=== PATIENT | female | born 1950 | race Caucasian/White ===

== ENCOUNTER 2018-10-02 16:29 | Inpatient (IN) | payer OTHER, MEDICARE ==
[~2018-10-02] VITALS: Ht 172.7 cm; Wt 181.4 kg
--- NOTE | ~2018-10-02 | CON ---
[address] [address] CONSULTATION Name: PABLITO CHAVARRIA Room: [address] IN .R.#: [id number] Admission: 10/02/18 Attend Phys: Jaspreet Bender MD Discharge: Date of : 48 Report #: [id number] THIS REPORT FOR: //name// CC: FAM physician/PCP Jaspreet Bender DATE OF SERVICE: 10/03/2018 REQUESTING PHYSICIAN: Jaspreet Bender MD REASON FOR CONSULTATION: Advanced kidney disease. HISTORY OF PRESENT ILLNESS: The patient is a 68-year-old white female with medical history significant for diabetes mellitus type 2 diagnosed in 1992, history of hypertension, history of morbid obesity, history of chronic lymphedema. She was admitted to the hospital because she could not get up off the toilet seat, her son called fire department and they brought her to Emergency Room. Here in the Emergency Room, she was found to have bilateral leg cellulitis. She has a creatinine of 2.9. Her GFR is around 16. Her white blood count initially was 11,000 with 89% segs, 1% bands. She was started on vancomycin and the Rocephin. She received just one dose of vancomycin that was stopped. Now, she continues with Rocephin only. SOCIAL HISTORY: She does not smoke cigarettes, does not drink alcohol. Lives with her son, actually son lives with her in her house. 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 She states that her son takes her to work and she is using a scooter at work to move from one place to another. FAMILY HISTORY: Positive for diabetes, morbid obesity. REVIEW OF SYSTEMS: Positive for difficulties to move around, difficulties to perform any kind of activities due to her weight. She states her legs become red for last several weeks. She states that she has chronic edema since she had bilateral mastectomy in 2013. PAST MEDICAL HISTORY: 1. Morbid obesity. 2. Diabetes mellitus type 2. 3. Hypertension. 4. Chronic lymphedema. 5. History of breast cancer, status post bilateral mastectomy in 2013, followed by ____, who is a breast surgeon. She does not follow with any breast oncologist. PHYSICAL EXAMINATION: GENERAL: Awake, alert, [place] [address] CONSULTATION Name: PABLITO CHAVARRIA Room: [address]#: [id number] Admission: 10/02/18 Attend Phys: Jaspreet Bender MD Discharge: Date of : 48 Report #: [id number] VITAL SIGNS: Blood pressure 153/80, heart rate 90, afebrile. HEENT: Pupils are round. NECK: Fatty. CHEST: She had bilateral mastectomy. LUNGS: Decreased air movement. CARDIOVASCULAR: Regular rate. ABDOMEN: Very obese. EXTREMITIES: With significant bilateral edema and chronic skin changes due to edema and also some erythema and below her knees bilaterally. MEDICATIONS: Reviewed and besides the Rocephin that are mentioned earlier, she is also on Coreg, Arimidex and she receives still on vancomycin and she was on diltiazem at home and diltiazem was appropriately stopped. ASSESSMENT: 1. Chronic kidney disease stage 4, most likely due to diabetic nephropathy. 2. Hypertension. 3. Morbid obesity. 4. Chronic lymphedema, possible cellulitis. PLAN: I agree avoid calcium channel blockers because they can promote edema. To make sure her blood pressure is controlled, blood sugars controlled and I would defer treatment of cellulitis to primary team. I will also order some basic workup patient with chronic kidney disease 4. Unfortunately, she is heading towards dialysis within the next year or so. Thank you very much for asking my opinion on the patient. By: 1016 [id number] Serrano MD /nt
[~2018-10-02 16:29] MED LIST: ACTOS 30 MG TAB30 MG PO; CARVEDILOL12.5 MG PO; CRESTOR40 MG PO; GLYBURIDE 5 MG T5 MG PO; LISINOPRIL20 MG PO; MOBIC15 MG PO; TRIAMTERENE-HC1 EAC3 PO; ULTRAM 50MG TAB50 MG PO; VERAPAMIL ER240 MG PO
[2018-10-02 16:30] VITALS: BP 141/81
[2018-10-02] MEDS ORDERED: GLUCOPHAGE XR750 MG PO (16:33)
[2018-10-02] MEDS ORDERED: LASIX 20 MG TAB20 MG PO (16:34)
[2018-10-02] MEDS ORDERED: KLOR-CON 1010 MEQ PO (16:34)
[2018-10-02] MEDS ORDERED: OXYBUTYNIN 5 MG5 M2 PO (16:36)
[2018-10-02] MEDS ORDERED: ANASTROZOLE1 MG PO (16:36)
[2018-10-02] MEDS ORDERED: CYMBALTA60 MG PO (16:36)
[2018-10-02] MEDS ORDERED: CARDIZEM CD240 MG PO (16:37)
[2018-10-02] MEDS ORDERED: GLYXAMBI 10 MG1 EACH PO (16:37)
[2018-10-02 17:16] LABS: HEMOGLOBIN 11.2 gm/dL (12.0-15.0); MCHC 31.2 g/dL (28.0-37.0); MCV 86.6 fL (80.0-100.0); MPV 8.3 fl. (7.2-11.1); NUCLEATED RBCS 0 /100WBC; PLATELET COUNT* 199 thou/uL (150-400); RBC 4.16 mil/uL (4.20-5.00); RDW-CV 18.4 % (10.5-14.5); WBC 11.1 thou/uL (4.0-11.0)
[2018-10-02 17:25] LABS: APTT 26.7 Seconds (25.0-31.3); PROTIME 10.7 Seconds (9.20-11.50)
[2018-10-02 17:33] LABS: ABSOLUTE EOSINOPHILS 0.2 thou/uL (0.0-0.7); ABSOLUTE LYMPHOCYTES 0.4 thou/uL (0.8-5.3); ABSOLUTE MONOCYTES 0.4 thou/uL (0.0-1.2)
[2018-10-02 17:34] LABS: ANION GAP 9 mmol/L (7-16); BUN 60 mg/dL (7-18); CALCIUM 8.9 mg/dL (8.5-10.1); CHLORIDE 110 mmol/L (98-107); CO2 28 mmol/L (21-32); CREATININE 2.9 mg/dL (0.6-1.3); GLUCOSE 69 mg/dL (70-99); PLATELET ESTIMATE ADEQUATE; SODIUM 147 mmol/L (136-145); TROPONIN-I LEVEL <0.06 ng/mL (<0.06)
[2018-10-02 17:40] LABS: ALBUMIN 2.6 g/dL (3.4-5.0); ALKALINE PHOSPHATASE 95 U/L (46-116); NT-PRO BRAIN NAT PEPTIDE 3750 pg/mL (<300); SGOT 22 U/L (15-37); SGPT 29 U/L (30-65); TOTAL BILIRUBIN 0.4 mg/dL (<0.1-1.0); TOTAL PROTEIN 6.3 g/dL (6.4-8.2)
[2018-10-02 19:52] VITALS: BP 149/78
[2018-10-02 20:00] VITALS: BP 122/86
[2018-10-03 00:38] LABS: URINE BILIRUBIN NEGATIVE (Negative); URINE BLOOD 2+ (Negative); URINE CLARITY CLEAR; URINE COLOR YELLOW; URINE GLUCOSE-RANDOM 1+ (Negative); URINE KETONES NEGATIVE (Negative); URINE LEUKOCYTES-REFLEX NEGATIVE (Negative); URINE NITRITE-REFLEX NEGATIVE (Negative); URINE PROTEIN 3+ (Negative); URINE SPECIFIC GRAVITY >= 1.030 (1.005-1.030); URINE UROBILINOGEN 0.2 E.U./dl (0.2-1.0)
[2018-10-03 02:03] LABS: FINE GRANULAR CASTS 0-3 Few /LPF (None Seen); SQUAMOUS 0-3 Few /LPF (0-3)
[2018-10-03 02:04] LABS: HYALINE CASTS 0-3 Few /LPF (None Seen); URINE WBC-REFLEX 0-5 Rare /HPF (0-5)
[2018-10-03 02:05] LABS: CRYSTALS None Seen /LPF (None Seen)
[2018-10-03 05:07] LABS: ABSOLUTE EOSINOPHILS 0.2 thou/uL (0.0-0.7); ABSOLUTE LYMPHOCYTES 0.6 thou/uL (0.8-5.3); ABSOLUTE MONOCYTES 0.8 thou/uL (0.0-1.2); ABSOLUTE NEUTROPHILS 5.8 thou/uL (1.6-8.1); BASOPHILS 0.4 %; EOSINOPHILS 3.4 %; HEMOGLOBIN 9.9 gm/dL (12.0-15.0); LYMPHOCYTES 7.8 %; MCH 27.1 pg (26.0-34.0); MCHC 31.1 g/dL (28.0-37.0); MCV 87.3 fL (80.0-100.0); MONOCYTES 10.7 %; MPV 8.7 fl. (7.2-11.1); NUCLEATED RBCS 0 /100WBC; PLATELET COUNT* 164 thou/uL (150-400); POLYS 77.7 %; RBC 3.67 mil/uL (4.20-5.00); RDW-CV 19.1 % (10.5-14.5); WBC 7.4 thou/uL (4.0-11.0)
[2018-10-03 05:30] LABS: CALCIUM 8.3 mg/dL (8.5-10.1); CREATININE 2.8 mg/dL (0.6-1.3); PHOSPHORUS* 5.3 mg/dL (2.5-4.9); POTASSIUM 4.1 mmol/L (3.5-5.1)
[2018-10-03 08:20] VITALS: BP 153/80
--- NOTE | 2018-10-03 10:47 | EKG ---
[place] [address] ELECTROCARDIOGRAM REPORT Name: PABLITO CHAVARRIA Room: [address] ADM IN .R.#: [id number] Admission: 10/02/18 Attend Phys: Jaspreet Bender MD Discharge: Date of : 48 Report #: [id number] THIS REPORT FOR: //name// [facility] ED Test Date: 2018-10-02 Test Time: 17:16:37 Pat Name: PABLITO CHAVARRIA Department: Room: [facility] Gender: F Weight Count Operator: : 1950 Requested By: Huber Pineda Order Number: [id number] MD: Arthur Gipson Measurements Intervals [place] Rate: 96 P: [place]: QRS: -29 QRSD: 91 T: 90 QT: 360 QTc: 455 Interpretive Statements Atrial fibrillation Borderline left axis deviation Borderline low voltage, extremity leads Abnormal R-wave progression, late transition Nonspecific T abnormalities, lateral leads Compared to ECG 08/26/2010 00:22:20 Sinus rhythm no longer present Electronically Signed On 10-03-2018 10:47:39 CDT by Arthur Gipson [email or web address] <ELECTRONICALLY SIGNED> By: Arthur Gipson MD, FAC 10/03/18 1047 1716 1716 Arthur Gipson MD, [facility] /EPI
[2018-10-03 17:18] VITALS: BP 160/87
[2018-10-03 19:50] VITALS: BP 120/64
[2018-10-04 02:10] LABS: GLYCOHEMOGLOBIN (HGB A1C) 7.1 % (4.8-5.6)
[2018-10-04 04:58] LABS: HEMOGLOBIN 9.8 gm/dL (12.0-15.0); MCHC 30.6 g/dL (28.0-37.0); MCV 88.3 fL (80.0-100.0); MPV 8.9 fl. (7.2-11.1); RBC 3.62 mil/uL (4.20-5.00); RDW-CV 19.4 % (10.5-14.5); WBC 7.1 thou/uL (4.0-11.0)
[2018-10-04 05:07] LABS: % SATURATION 8 % (20-39); IRON 20 ug/dL (50-175)
[2018-10-04 05:21] LABS: ALBUMIN 2.2 g/dL (3.4-5.0); CALCIUM 7.8 mg/dL (8.5-10.1); CREATININE 2.9 mg/dL (0.6-1.3); POTASSIUM 4.5 mmol/L (3.5-5.1); TOTAL BILIRUBIN 0.3 mg/dL (<0.1-1.0); TOTAL PROTEIN 5.9 g/dL (6.4-8.2)
[2018-10-04 09:00] VITALS: BP 145/75
--- NOTE | 2018-10-04 11:48 | CON ---
[address] [address] CONSULTATION Name: PABLITO CHAVARRIA Room: [address] ADM IN M.R.#: [id number] Admission: 10/02/18 Attend Phys: Jaspreet Bender MD Discharge: Date of : 48 Report #: [id number] THIS REPORT FOR: //name// CC: FAM physician/PCP Jaspreet Bender DATE OF SERVICE: 10/03/2018 INFECTIOUS DISEASE CONSULTATION ATTENDING PHYSICIAN: Dr. Jaspreet Bender. REASON FOR EVALUATION: Bilateral lower extremity inflammatory eruptions with a likely component of cellulitis. HISTORY OF PRESENT ILLNESS: Chart reviewed, patient examined. This is a 68-year-old woman with extensive medical history, does have diabetes mellitus who apparently has chronic lymphedema as well. She is seen in speciality clinic who over the course of last few days has become weaker, had fallen, was unable to get even with the assistance of her son, did admit to some chills as well. Complains of some anorexia. She is not clear if she has had fever, does admit to ongoing issues with dyspnea. She states with minimal exertion, essentially walking in the house to the car she is quite winded, was evaluated in the Emergency Room and thought to have increasing inflammatory signs within the bilateral lower extremities. On specific questioning, it is not clear that she has significant pain. She states very weak and gave way. Initial white count was borderline elevated at 11.1. She was found to be in renal failure with a creatinine of 2.9. Chest x-ray was otherwise unremarkable. Urinalysis showed 3+ protein, 0-5 white cells. Blood cultures are pending. Empirically she was started on antimicrobial therapy including ceftriaxone, vancomycin, is perhaps mildly encephalopathic. ALLERGIES: None known. MEDICATIONS: Currently include enoxaparin, atorvastatin, duloxetine, anastrozole, oxybutynin, carvedilol, ceftriaxone, insulin, vancomycin, and analgesics. PAST MEDICAL HISTORY: Diabetes mellitus type 2, history of hypertension, high cholesterol, previous history of breast cancer with lumpectomy, radiation therapy, , tonsillectomy, cholecystectomy, abdominal hernia repair, arthritis, bilateral mastectomies 2013. SOCIAL HISTORY: Nonsmoker, no ethanol, no illicit drug use. FAMILY HISTORY: [place] [address] CONSULTATION Name: PABLITO CHAVARRIA Room: [address] IN [facility]#: [id number] Admission: 10/02/18 Attend Phys: Jaspreet Bender MD Discharge: Date of : 48 Report #: [id number] REVIEW OF SYSTEMS: A 10-point review of systems as otherwise unremarkable with the exception of the above history of present illness: PHYSICAL EXAMINATION: GENERAL: Slightly lethargic, she appears to be in moderate distress, primarily from respiratory standpoint, she is on supplemental oxygen per nasal cannula. She is morbidly obese. VITAL SIGNS: Temperature 97.6, pulse 90, respirations 20, blood pressure is 153/80. SKIN: Warm. HEENT: Normocephalic. Extraocular muscles intact. NECK: Supple. LUNGS: Diminished breath sounds. Few scattered crackles at the bases. HEART: Regular. I do not appreciate murmur. ABDOMEN: Obese, soft, nontender. EXTREMITIES: Bilateral lower extremities have changes consistent with likely combination of lymphedema as well as venous stasis insufficiency, some chronic dermatitis seems to be acute component on the right perhaps skin and soft tissue infection with cellulitis, not exquisitely tender. Does have lesion on her left pretibial site appears to be dark. She states it has been there for 2 years. GENITOURINARY: Deferred. RECTAL: Deferred. LABORATORY DATA: Blood cultures sterile thus far, prealbumin 16.3. TSH of 0.56. Followup CBC: White count of 7.4, H and H 9.9 and 32.0, platelets of 164. Differential showed lymphocytopenia of 600. Electrolytes: Sodium 145, potassium 4.1, chloride 111, bicarbonate is 27, anion gap of 6, BUN and creatinine 58 and 2.8. Urinalysis 0-5 white cells, 10-30 bacteria. Chest x-ray, no acute process. Liver functions otherwise unremarkable. Albumin of 2.6. Total protein 6.3. ASSESSMENT: Bilateral lower extremity inflammatory eruption, likely multifactorial, cannot exclude skin and soft tissue infection with cellulitis particularly on the right. We will continue empiric antimicrobial therapy adjusted for her renal dysfunction see how she does clinically. She does have history of utilizing compression will try to reintroduce that as well the next 1-2 days. Continue elevation. She appears to be quite tenuous in terms of overall excess body fluid, does have orthopnea, monitor to avoid significant fluid shifts. <ELECTRONICALLY SIGNED> By: Mehran Roa MD 10/04/18 1148 0941 [id number] Roa MD /nt
[2018-10-04 17:40] VITALS: BP 147/86
[2018-10-04 20:00] VITALS: BP 155/82
[2018-10-05] VITALS: BP 174/80
[2018-10-05 04:00] VITALS: BP 160/80
[2018-10-05 07:40] VITALS: BP 170/83
[2018-10-05 12:52] VITALS: BP 168/79
[2018-10-05 13:31] LABS: ALBUMIN 2.4 g/dL (3.4-5.0); CALCIUM 8.4 mg/dL (8.5-10.1); CREATININE 2.8 mg/dL (0.6-1.3); PHOSPHORUS* 4.3 mg/dL (2.5-4.9); POTASSIUM 4.8 mmol/L (3.5-5.1)
[2018-10-05 19:07] LABS: IgA 346 mg/dL (87-352); IgG 570 mg/dL (700-1600); IgM 83 mg/dL (26-217)
[2018-10-05 20:30] VITALS: BP 177/99
[2018-10-06 00:44] VITALS: BP 166/84
[2018-10-06 04:29] LABS: ALBUMIN 2.5 g/dL (3.4-5.0); CALCIUM 8.6 mg/dL (8.5-10.1); CREATININE 2.7 mg/dL (0.6-1.3); PHOSPHORUS* 3.9 mg/dL (2.5-4.9); POTASSIUM 4.8 mmol/L (3.5-5.1)
[2018-10-06 04:30] VITALS: BP 166/77
[2018-10-06 06:04] LABS: URINE BILIRUBIN NEGATIVE (Negative); URINE BLOOD TRACE (Negative); URINE CLARITY CLEAR; URINE COLOR YELLOW; URINE GLUCOSE-RANDOM TRACE (Negative); URINE KETONES NEGATIVE (Negative); URINE LEUKOCYTES NEGATIVE (Negative); URINE NITRITE NEGATIVE (Negative); URINE PROTEIN 2+ (Negative); URINE SPECIFIC GRAVITY 1.025 (1.005-1.030); URINE UROBILINOGEN 0.2 E.U./dl (0.2-1.0)
[2018-10-06 06:14] LABS: SQUAMOUS >10 Many /LPF (0-3)
[2018-10-06 06:15] LABS: BACTERIA 1-9 Few /HPF (None Seen); CASTS None Seen /LPF (None Seen); CRYSTALS None Seen /LPF (None Seen); MUCUS 0-3 Light strn/LPF (None Seen); URINE RBC 3-10 Few /HPF (0-2); URINE WBC 0-5 Rare /HPF (0-5)
[2018-10-06 06:16] LABS: YEAST Present (None Seen)
[2018-10-06 07:40] VITALS: BP 117/94
[2018-10-06 10:08] LABS: ANTI-DNA SCREEN <1 IU/mL (0-9); ANTI-RNP 0.3 AI (0.0-0.9)
[2018-10-06 11:30] VITALS: BP 132/78
[2018-10-06 12:43] LABS: HEMATOCRIT 33.1 % (37.0-47.0); HEMOGLOBIN 10.3 gm/dL (12.0-15.0); MCH 27.6 pg (26.0-34.0); MCHC 30.9 g/dL (28.0-37.0); MCV 89.1 fL (80.0-100.0); MPV 8.9 fl. (7.2-11.1); NUCLEATED RBCS 0 /100WBC; PLATELET COUNT* 156 thou/uL (150-400); RBC 3.72 mil/uL (4.20-5.00); RDW-CV 18.8 % (10.5-14.5); WBC 8.1 thou/uL (4.0-11.0)
[2018-10-06 12:46] LABS: CALCIUM 8.8 mg/dL (8.5-10.1); CREATININE 2.7 mg/dL (0.6-1.3); POTASSIUM 4.9 mmol/L (3.5-5.1)
[2018-10-06 13:04] LABS: ABSOLUTE EOSINOPHILS 0.1 thou/uL (0.0-0.7); ABSOLUTE LYMPHOCYTES 0.1 thou/uL (0.8-5.3); ABSOLUTE MONOCYTES 0.4 thou/uL (0.0-1.2); ABSOLUTE NEUTROPHILS 7.5 thou/uL (1.6-8.1); PLATELET ESTIMATE ADEQUATE
[2018-10-06 15:10] LABS: KAPPA FREE LIGHT CHAINS 43.6 mg/L (3.3-19.4); LAMBDA FREE LIGHT CHAINS 41.9 mg/L (5.7-26.3)
[2018-10-06 15:21] VITALS: BP 139/86
[2018-10-06 16:06] LABS: GLOBULIN TOTAL 2.3 g/dL (2.2-3.9); M-SPIKE Not Observed g/dL (Not Observed)
[2018-10-06 20:30] VITALS: BP 125/91
[2018-10-07] VITALS: BP 132/72
[2018-10-07 04:30] VITALS: BP 184/95
[2018-10-07 07:55] VITALS: BP 162/90
[2018-10-07 10:43] LABS: ALBUMIN 2.5 g/dL (3.4-5.0); CALCIUM 8.7 mg/dL (8.5-10.1); CREATININE 2.7 mg/dL (0.6-1.3); MAGNESIUM 2.1 mg/dL (1.8-2.4); PHOSPHORUS* 3.9 mg/dL (2.5-4.9)
[2018-10-07 18:19] VITALS: BP 137/81
[2018-10-07 21:40] VITALS: BP 151/86
[2018-10-08] VITALS: BP 155/77
[2018-10-08 04:44] LABS: CALCIUM 8.8 mg/dL (8.5-10.1); CREATININE 2.4 mg/dL (0.6-1.3); POTASSIUM 5.2 mmol/L (3.5-5.1)
[2018-10-08 07:39] VITALS: BP 147/87
[2018-10-08 11:44] VITALS: BP 124/73
[2018-10-08 16:00] VITALS: BP 135/76
[2018-10-08 20:15] VITALS: BP 115/90
[2018-10-09] VITALS: BP 137/59
[2018-10-09 05:19] LABS: HEMATOCRIT 31.6 % (37.0-47.0); HEMOGLOBIN 9.6 gm/dL (12.0-15.0); MCHC 30.3 g/dL (28.0-37.0); MCV 88.9 fL (80.0-100.0); RBC 3.56 mil/uL (4.20-5.00); RDW-CV 18.2 % (10.5-14.5); WBC 10.1 thou/uL (4.0-11.0)
[2018-10-09 05:39] LABS: CALCIUM 8.5 mg/dL (8.5-10.1); CREATININE 2.7 mg/dL (0.6-1.3); MAGNESIUM 1.8 mg/dL (1.8-2.4); POTASSIUM 4.8 mmol/L (3.5-5.1)
[2018-10-09 06:00] VITALS: BP 134/73
[2018-10-09 08:39] VITALS: BP 170/78
[2018-10-09] MEDS ORDERED: DYNACIN100 MG PO (12:18)
[2018-10-09] MEDS ORDERED: IRON325 PO (12:18)
[2018-10-09] MEDS ORDERED: ELIQUIS5 MG PO (12:18)
[2018-10-09] MEDS ORDERED: ACETAMINOPHEN325 M1 PO (12:18)
[2018-10-09] MEDS ORDERED: GLUCOTROL5 MG PO (12:21)
[2018-10-09 14:52] VITALS: BP 136/98
--- NOTE | 2018-10-09 15:15 | 2DMMODE ---
[place] [address] 2 D/M-MODE ECHOCARDIOGRAM Name: PABLITO CHAVARRIA Room: [address] ADM IN [facility]#: [id number] Admission: 10/02/18 Attend Phys: Jaspreet Bender MD Discharge: Date of : 48 Date of Service: 10/09/18 1515 Report #: [id number] THIS REPORT FOR: //name// APPROVED REPORT Study performed: 10/09/2018 10:34:26 EXAM: Comprehensive 2D, Doppler, and color-flow Echocardiogram Patient Location: In-Patient Room #: [facility] Status: routine BSA: 2.74 HR: 79 bpm BP: 170/78 mmHg Rhythm: NSR Other Information Study Quality: Fair Indications Dyspnea 2D Dimensions IVSd: 14.83 (7-11mm) LVOT Diam: 22.68 (18-24mm) LVDd: 49.22 mm PWd: 12.93 (7-11mm) Ascending Ao: 36.12 (22-36mm) LVDs: 32.15 (25-40mm) Aortic Root: 34.77 mm Volumes Left Atrial Volume (Systole) LA ESV Index: 25.90 mL/m2 Aortic Valve AoV Peak Jerson.: 1.35 m/s AO Peak Gr.: 7.30 mmHg LVOT Max P.14 mmHg AO Mean Gr.: 4.30 mmHg LVOT Mean P.31 mmHg LVOT Max V: 1.02 m/s AO V2 VTI: 24.76 cm LVOT Mean V: 0.71 m/s KORY (VTI): 3.07 cm2 LVOT V1 VTI: 18.81 cm TDI Medial E' Jerson.: 0.16 m/s Lateral E' Jerson.: 0.15 m/[place] [address] 2 D/M-MODE ECHOCARDIOGRAM Name: PABLITO CHAVARRIA Room: [address] IN [facility].#: [id number] Admission: 10/02/18 Attend Phys: Jaspreet Bender MD Discharge: Date of : 48 Date of Service: 10/09/18 1515 Report #: [id number] Pulmonary Valve PV Peak Jerson.: 0.94 m/s PV Peak Gr.: 3.54 mmHg Tricuspid Valve RAP Estimate: 5.00 mmHg TR Peak Gr.: 46.51 mmHg RVSP: 51.00 mmHg PA Pressure: 51.00 mmHg Left Ventricle The left ventricle is normal size. There is normal LV segmental wall motion. Mild concentric left ventricular hypertrophy. Left ventricular systolic function is normal. The left ventricular ejection fraction is within the normal range. LVEF is 55-60%. The left ventricular diastolic function is normal. Right Ventricle The right ventricle is normal size. The right ventricular systolic function is normal. Atria The left atrium size is normal. The right atrium size is normal. Aortic Valve Mild aortic valve sclerosis. No aortic regurgitation is present. There is no aortic valvular stenosis. Mitral Valve There is mitral annular calcification. Mild mitral regurgitation. No evidence of mitral valve stenosis. Tricuspid Valve The tricuspid valve is normal in structure. Moderate tricuspid regurgitation. estimate pa pressure 55 mm Hg Pulmonic Valve The pulmonary valve is normal in structure. Mild pulmonic regurgitation. Great Vessels The aortic root is normal in size. IVC is not visualized. Pericardium There [place] [address] 2 D/M-MODE ECHOCARDIOGRAM Name: AURAPABLITO Mele Room: [address] IN .R.#: [id number] Admission: 10/02/18 Attend Phys: Jaspreet Bender MD Discharge: Date of : 48 Date of Service: 10/09/181514 Report #: [id number] <Conclusion> Mild concentric left ventricular hypertrophy. LVEF is 55-60%. Mild mitral regurgitation. Moderate tricuspid regurgitation. estimate pa pressure 55 mm Hg <ELECTRONICALLY SIGNED> By: Arthur Gipson MD, [facility] 10/09/18 1515 14 1515 Arthur Gipson MD, FACC /INF
[2018-10-10 00:30] VITALS: BP 141/72
[2018-10-10 04:30] VITALS: BP 143/62
[2018-10-10 04:47] LABS: CALCIUM 8.1 mg/dL (8.5-10.1); CREATININE 2.6 mg/dL (0.6-1.3); POTASSIUM 4.6 mmol/L (3.5-5.1)
[2018-10-10 07:55] VITALS: BP 148/83
[2018-10-10 11:16] VITALS: BP 148/83
[2018-10-10 14:27] VITALS: BP 146/68
== END 2018-10-10 14:45 | DRG 871 ==
LOC: M.ERS 16:29 → M.TBA-ER 18:32 → M.3W 18:32
PROVIDERS: Emergency Medicine; Internal Medicine; Internal Medicine Nephrology; ADMIT Family Medicine
DX: A41.9 Sepsis, unspecified organism (principal); J96.00 Acute respiratory failure, unspecified whether with hypoxia or hypercapnia; L03.116 Cellulitis of left lower limb; L03.115 Cellulitis of right lower limb; Z68.44 Body mass index [BMI] 60.0-69.9, adult; N18.4 Chronic kidney disease, stage 4 (severe); D68.59 Other primary thrombophilia; I13.0 Hypertensive heart and chronic kidney disease with heart failure and stage 1 through stage 4 chronic kidney disease, or unspecified chronic kidney disease; I50.30 Unspecified diastolic (congestive) heart failure; N17.9 Acute kidney failure, unspecified; D63.8 Anemia in other chronic diseases classified elsewhere; R31.9 Hematuria, unspecified; R80.9 Proteinuria, unspecified; I48.2 Chronic atrial fibrillation; D50.9 Iron deficiency anemia, unspecified; E66.01 Morbid (severe) obesity due to excess calories; K58.9 Irritable bowel syndrome, unspecified; E11.22 Type 2 diabetes mellitus with diabetic chronic kidney disease; G47.33 Obstructive sleep apnea (adult) (pediatric); E78.00 Pure hypercholesterolemia, unspecified; M79.7 Fibromyalgia; M17.0 Bilateral primary osteoarthritis of knee; E78.5 Hyperlipidemia, unspecified; I89.0 Lymphedema, not elsewhere classified; Z79.84 Long term (current) use of oral hypoglycemic drugs; Z90.49 Acquired absence of other specified parts of digestive tract; Z98.891 History of uterine scar from previous surgery; Z90.13 Acquired absence of bilateral breasts and nipples; Z83.3 Family history of diabetes mellitus; Z85.3 Personal history of malignant neoplasm of breast

== ENCOUNTER 2018-11-10 18:31 | Inpatient (IN) | payer OTHER, MEDICARE ==
[~2018-11-10] VITALS: Ht 172.7 cm; Wt 204.1 kg
[~2018-11-10 18:31] MED LIST changes: +ACETAMINOPHEN325 M1 PO; +ANASTROZOLE1 MG PO; +CARDIZEM CD240 MG PO; +CYMBALTA60 MG PO; +DYNACIN100 MG PO; +ELIQUIS5 MG PO; +GLUCOPHAGE XR750 MG PO; +GLUCOTROL5 MG PO; +GLYXAMBI 10 MG1 EACH PO; +IRON325 PO; +KLOR-CON 1010 MEQ PO; +LASIX 20 MG TAB20 MG PO; +OXYBUTYNIN 5 MG5 M2 PO
[2018-11-10 18:35] VITALS: BP 110/63
[2018-11-10 19:26] LABS: ABSOLUTE EOSINOPHILS 0.1 thou/uL (0.0-0.7); ABSOLUTE LYMPHOCYTES 0.3 thou/uL (0.8-5.3); ABSOLUTE MONOCYTES 0.8 thou/uL (0.0-1.2); ABSOLUTE NEUTROPHILS 5.3 thou/uL (1.6-8.1); BASOPHILS 0.2 %; HEMATOCRIT 22.3 % (37.0-47.0); LYMPHOCYTES 4.4 %; MCH 26.4 pg (26.0-34.0); MCHC 31.2 g/dL (28.0-37.0); MCV 84.7 fL (80.0-100.0); MONOCYTES 12.8 %; MPV 7.8 fl. (7.2-11.1); NUCLEATED RBCS 0 /100WBC; PLATELET COUNT* 187 thou/uL (150-400); POLYS 80.6 %; RBC 2.64 mil/uL (4.20-5.00); RDW-CV 18.5 % (10.5-14.5); WBC 6.6 thou/uL (4.0-11.0)
[2018-11-10 19:34] LABS: CALCIUM 8.5 mg/dL (8.5-10.1); CREATININE 5.3 mg/dL (0.6-1.3); POTASSIUM 4.2 mmol/L (3.5-5.1)
[2018-11-10 19:35] LABS: APTT 36.9 Seconds (25.0-31.3); INR 1.3; PROTIME 13.4 Seconds (9.20-11.50)
[2018-11-10 19:45] LABS: ALBUMIN 1.9 g/dL (3.4-5.0); TOTAL BILIRUBIN 0.4 mg/dL (<0.1-1.0); TOTAL PROTEIN 6.4 g/dL (6.4-8.2)
[2018-11-10 20:03] LABS: URINE BILIRUBIN NEGATIVE (Negative); URINE BLOOD 3+ (Negative); URINE CLARITY CLOUDY; URINE COLOR RED; URINE GLUCOSE-RANDOM TRACE (Negative); URINE KETONES TRACE (Negative); URINE LEUKOCYTES-REFLEX TRACE (Negative); URINE PROTEIN 3+ (Negative); URINE UROBILINOGEN 0.2 E.U./dl (0.2-1.0)
[2018-11-10 20:11] LABS: URINE NITRITE-REFLEX POSITIVE (Negative)
[2018-11-10 20:21] LABS: BACTERIA-REFLEX >30 Many /HPF (None Seen); URINE RBC >20 Many /HPF (0-2)
[2018-11-10 20:22] LABS: CASTS None Seen /LPF (None Seen); CRYSTALS None Seen /LPF (None Seen); MUCUS None Seen strn/LPF (None Seen); SQUAMOUS 0-3 Few /LPF (0-3); URINE WBC-REFLEX 0-5 Rare /HPF (0-5)
[2018-11-10 22:21] LABS: HEMATOCRIT 22.8 % (37.0-47.0)
[2018-11-10 23:45] VITALS: BP 138/68
[2018-11-11] VITALS: BP 129/76
[2018-11-11] MEDS ORDERED: MILK OF MA400 MG/5 M PO (00:35)
[2018-11-11] MEDS ORDERED: UNICOMPLEX M TA1 TA1 PO (00:36)
[2018-11-11] MEDS ORDERED: NORCO 5-325 TA1 EACH PO (00:37)
[2018-11-11] MEDS ORDERED: NYAMYC15 GM TOP (00:37)
[2018-11-11] MEDS ORDERED: HUMALOG100 UNIT/1 SUBQ (00:38)
[2018-11-11 02:01] LABS: HEMATOCRIT 23.5 % (37.0-47.0); HEMOGLOBIN 7.3 gm/dL (12.0-15.0)
[2018-11-11 04:00] VITALS: BP 103/68
[2018-11-11 05:39] LABS: CALCIUM 8.1 mg/dL (8.5-10.1); CREATININE 5.4 mg/dL (0.6-1.3); POTASSIUM 4.2 mmol/L (3.5-5.1)
[2018-11-11 05:43] LABS: HEMATOCRIT 22.8 % (37.0-47.0)
[2018-11-11 08:00] VITALS: BP 123/63
[2018-11-11 09:21] LABS: HEMATOCRIT 23.3 % (37.0-47.0); HEMOGLOBIN 7.1 gm/dL (12.0-15.0)
[2018-11-11 12:00] VITALS: BP 117/69
[2018-11-11 16:00] VITALS: BP 118/61
[2018-11-11 19:35] LABS: CALCIUM 8.6 mg/dL (8.5-10.1); POTASSIUM 4.4 mmol/L (3.5-5.1)
[2018-11-11 20:00] VITALS: BP 117/73
[2018-11-12] VITALS: BP 121/71
[2018-11-12 04:00] VITALS: BP 118/60
[2018-11-12 05:46] LABS: % SATURATION 16 % (20-39); IRON 30 ug/dL (50-175)
[2018-11-12 05:47] LABS: CALCIUM 8.3 mg/dL (8.5-10.1); CREATININE 6.1 mg/dL (0.6-1.3); POTASSIUM 4.5 mmol/L (3.5-5.1)
[2018-11-12 07:02] LABS: HEMATOCRIT 24.1 % (37.0-47.0); HEMOGLOBIN 7.3 gm/dL (12.0-15.0)
[2018-11-12 08:52] VITALS: BP 126/70
[2018-11-12 16:00] VITALS: BP 112/64
[2018-11-12 16:07] LABS: COMPLEMENT-C4 38 mg/dL (14-44)
[2018-11-12 20:00] VITALS: BP 140/72
[2018-11-13] VITALS: BP 117/67
[2018-11-13 04:00] VITALS: BP 122/52
[2018-11-13 04:32] LABS: CALCIUM 8.3 mg/dL (8.5-10.1); CREATININE 6.5 mg/dL (0.6-1.3); POTASSIUM 4.2 mmol/L (3.5-5.1)
[2018-11-13 08:00] VITALS: BP 110/47
[2018-11-13 12:23] VITALS: BP 123/64
[2018-11-13 16:11] LABS: HEPATITIS B SURFACE AG Negative (Negative)
--- NOTE | 2018-11-13 16:46 | EKG ---
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: HEIDI : 1950 Requested By: Ramila Tapia Order Number: [id number] MD: Mehdi Doherty Measurements Intervals [place] Rate: 95 P: [place]: QRS: -24 QRSD: 89 T: 122 QT: 404 QTc: 508 Interpretive Statements Atrial fibrillation Inferior infarct, old possible Anteroseptal infarct, age indeterminate possible Prolonged QT interval Compared to ECG 10/02/2018 17:16:37 Myocardial infarct finding now present Prolonged QT interval now present Electronically Signed On 11-13-2018 16:46:14 CDT by Mehdi Doherty [email or web address] <ELECTRONICALLY SIGNED> By: Mehdi Doherty MD, [facility] 11/13/18 1646 02 02 Mehdi Doherty MD, [facility] /EPI
[2018-11-13 20:00] VITALS: BP 134/75
[2018-11-14] VITALS (10 sets, daily range): BP systolic 108–149; BP diastolic 49–98
[2018-11-14 02:06] LABS: ANA INTERPRETATION Negative (Negative)
[2018-11-14 06:10] LABS: CALCIUM 8.3 mg/dL (8.5-10.1); CREATININE 6.1 mg/dL (0.6-1.3); POTASSIUM 4.4 mmol/L (3.5-5.1)
[2018-11-14 09:11] LABS: GLOMERULR BASEM MEMBRN AB 5 units (0-20)
[2018-11-14 11:13] LABS: BE -3.7 mmol/L (-2 to +3); PO2 100.7 mmHg (75.0-100.0)
[2018-11-14 11:18] LABS: pH 7.259 (7.340-7.450)
[2018-11-14 11:19] LABS: PCO2 53.6 mmHg (35.0-45.0)
--- NOTE | 2018-11-14 13:00 | EKG ---
[place] [address] ELECTROCARDIOGRAM REPORT Name: PABLITO CHAVARRIA Room: [address] ADM IN .R.#: [id number] Admission: 11/10/18 Attend Phys: Marylou Meadows Discharge: Date of : 48 Report #: [id number] THIS REPORT FOR: //name// [facility] Test Date: 2018-11-14 Test Time: 10:52:29 Pat Name: PABLITO CHAVARRIA Department: Room: [address] Gender: F Enrollment Clerk: 1886 : 1950 Requested By: Gustavo Kwon Order Number: [id number] MD: Curry Peralta Measurements Intervals [place] Rate: 92 P: [place]: QRS: -27 QRSD: 103 T: 119 QT: 395 QTc: 489 Interpretive Statements Atrial fibrillation Ventricular premature complex Anteroseptal infarct, age indeterminate Compared to ECG 11/10/2018 22:03:24 Ventricular premature complex(es) now present Prolonged QT interval no longer present Myocardial infarct finding still present Electronically Signed On 11-14-2018 13:00:14 CDT by Curry Peralta [email or web address] <ELECTRONICALLY SIGNED> By: Curry Peralta MD, FACC 11/14/18 1300 1052 1052 Curry Peralta MD, [facility] /EPI
[2018-11-14 16:06] LABS: BE -4.3 mmol/L (-2 to +3)
[2018-11-14 16:13] LABS: PCO2 60.9 mmHg (35.0-45.0); pH 7.208 (7.340-7.450)
[2018-11-15 04:00] VITALS: BP 131/98
[2018-11-15 08:00] VITALS: BP 123/88
--- NOTE | 2018-11-15 08:01 | OP ---
[facility] [address] [place] [address] OPERATIVE REPORT Name: PABLITO CHAVARRIA Room: [address] IN .R.#: [id number] Admission: 11/10/18 Attend Phys: Marylou Meadows Discharge: Date of : 48 Report #: [id number] THIS REPORT FOR: //name// CC: Dave Kwon DATE OF SERVICE: 11/13/2018 PREOPERATIVE DIAGNOSIS: Acute on chronic renal failure. POSTOPERATIVE DIAGNOSIS: Acute on chronic renal failure. OPERATION: 1. Ultrasound-guided access of left internal jugular vein. 2. Tunneled dialysis catheter placement. SURGEON: Javier Bush DO. BATTER MIXER HELPER: PHILIPPE Marie ANESTHESIA: Local. ESTIMATED BLOOD LOSS: 50 mL. FLUIDS: Less than 100 crystalloid. URINE OUTPUT: None. SPECIMENS: None. IMPLANTS: Bard RetrO 23 cm tunneled dialysis catheter in the left IJ. FINDINGS: Ultrasound demonstrated left internal jugular vein to be soft and compressible, suitable for access. The catheter tip was positioned in the right atrium SVC junction, aspirated and flushed easily without resistance. CLINICAL HISTORY: The patient is a 68-year-old woman with jeunl-af-ywvizom renal failure. She is in need of a tunneled dialysis catheter placement to initiate dialysis in a short order. DATE OF PROCEDURE: After informed consent was obtained, the patient was taken to the angio suite, placed on the angio bed in supine position. She was administered local anesthetic in the left neck. Full timeout was performed identifying correct patient and procedure. After neck was prepped and draped, using ultrasound guidance, left internal jugular vein was identified, was accessed with an 18 gauge needle. These images were preserved. Using [address] [address] OPERATIVE REPORT Name: PABLITO CHAVARRIA Room: [address] IN .R.#: [id number] Admission: 11/10/18 Attend Phys: Marylou Meadows Discharge: Date of : 48 Report #: [id number] technique, a wire was passed under fluoroscopic guidance in the IVC. A small skin incision was made in the left neck. The introducer sheath was then passed over the wire. I then serially dilated the tract and then passed catheters over the wires to the tip of the right atrium SVC junction. The catheter was then tailored to length. The left chest wall was then anesthetized and a small skin incision was made. A tunneler was passed up to the left neck under fluoroscopic guidance to ensure no kinks or twists. I then again tailored the catheter to length. Both ports were applied. Both ports aspirated and flushed with heparin. Both ports were then packed with heparinized saline. I then secured the catheter to the chest wall with 3-0 Monocryl suture and closed the neck incision with 3-0 Monocryl suture. Sterile dressing was applied. All sponge, sharp and instrument counts reported correct x 2. She tolerated the procedure well and was transferred back to room in stable condition. <ELECTRONICALLY SIGNED> By: Javier Bush DO 11/15/18 0801 1321 [id number] Bush DO /nt
[2018-11-15 16:21] VITALS: BP 134/89
[2018-11-15 19:50] LABS: HEMATOCRIT 22.5 % (37.0-47.0); MCH 25.8 pg (26.0-34.0); MCHC 30.5 g/dL (28.0-37.0); MCV 84.7 fL (80.0-100.0); MPV 8.1 fl. (7.2-11.1); RBC 2.65 mil/uL (4.20-5.00); RDW-CV 18.9 % (10.5-14.5); WBC 15.9 thou/uL (4.0-11.0)
[2018-11-15 19:59] LABS: CALCIUM 8.1 mg/dL (8.5-10.1); POTASSIUM 4.4 mmol/L (3.5-5.1)
[2018-11-15 20:00] LABS: CREATININE 3.9 mg/dL (0.6-1.3); HEMOGLOBIN 6.9 gm/dL (12.0-15.0)
[2018-11-15 22:27] LABS: BE -7.1 mmol/L (-2 to +3); PCO2 39.5 mmHg (35.0-45.0); PO2 119.6 mmHg (75.0-100.0)
[2018-11-15 22:31] LABS: pH 7.295 (7.340-7.450)
[2018-11-15 23:51] VITALS: BP 135/72
[2018-11-16] VITALS (15 sets, daily range): BP systolic 107–180; BP diastolic 58–102
[2018-11-16 05:03] LABS: CALCIUM 8.4 mg/dL (8.5-10.1); CREATININE 4.2 mg/dL (0.6-1.3); POTASSIUM 4.7 mmol/L (3.5-5.1)
[2018-11-16 09:41] LABS: HEMATOCRIT 23.5 % (37.0-47.0)
[2018-11-16 09:51] LABS: HEMOGLOBIN 6.8 gm/dL (12.0-15.0)
[2018-11-16 20:38] LABS: HEMATOCRIT 25.1 % (37.0-47.0); HEMOGLOBIN 7.7 gm/dL (12.0-15.0)
[2018-11-17] VITALS (54 sets, daily range): BP systolic 100–178; BP diastolic 53–117
[2018-11-17 06:50] LABS: CALCIUM 8.5 mg/dL (8.5-10.1); POTASSIUM 4.8 mmol/L (3.5-5.1)
--- NOTE | 2018-11-17 07:05 | CON ---
[address] [address] CONSULTATION Name: PABLITO CHAVARRIA Room: [address] ADM IN M.R.#: [id number] Admission: 11/10/18 Attend Phys: Marylou Meadows Discharge: Date of : 48 Report #: [id number] THIS REPORT FOR: //name// CC: Dave Kwon DATE OF SERVICE: 11/15/2018 INFECTIOUS DISEASE CONSULTATION ATTENDING PHYSICIAN: Gustavo Kwon DO. REASON FOR EVALUATION: Complicated urinary tract infection with perhaps pneumonitis, multiorgan dysfunction. HISTORY OF PRESENT ILLNESS: Chart reviewed, patient examined. This is a 68-year-old woman known to myself, who was actually hospitalized September of this year with a bilateral lower extremity inflammatory eruptions, thought to be component of venous stasis, chronic lymphedema and cellulitis, who was at a rehabilitation facility with course of the days prior to admission, found to have blood in diaper was ultimately diagnosed with gross hematuria. Urinalysis showed marked pyuria as a complicating factor, she has got chronic renal failure that there is an acute injury due to what was believed to be a nonreversible situation, catheter was placed. She is scheduled to undergo dialysis. Chronic respiratory distress, she is on BiPAP at this point, she is unable to give any details of history due to her perhaps marked encephalopathy, is empirically started on antimicrobials including ceftriaxone as well as a dose of levofloxacin today. Urine culture now with growth of Klebsiella pneumoniae and it was in vitro was resistant to ceftriaxone. ALLERGIES: None known. MEDICATIONS: Include levofloxacin, ipratropium and albuterol inhaler, methylprednisolone, atorvastatin, insulin, anastrozole, duloxetine, carvedilol, ceftriaxone, p.r.n. analgesics and antiemetics. PAST MEDICAL HISTORY: Chronic renal insufficiency complicated by acute insult likely long-term dialysis; diabetes mellitus type 2, hypertension, high cholesterol, previous history of right breast cancer, fibromyalgia, degenerative arthritis involving the knees, previous tonsillectomy, cholecystectomy, C-sections x 2, bilateral mastectomy. SOCIAL HISTORY: Nonsmoker, no ethanol. FAMILY HISTORY: [place] [address] CONSULTATION Name: AURAPABLITO Mele Room: [address]#: [id number] Admission: 11/10/18 Attend Phys: Marylou Meadows Discharge: Date of : 48 Report #: [id number] REVIEW OF SYSTEMS: Not obtainable. PHYSICAL EXAMINATION: GENERAL: She is in moderate respiratory distress. She has a BiPAP in place. She is minimally responsive at this point since she opens her eyes, it is not clear if she has a recognition. VITAL SIGNS: Temperature 97.5, pulse 95, respirations 16, blood pressure 123/88. SKIN: Warm and multiple contused areas over upper extremities. HEENT: Normocephalic has got a BiPAP in place. NECK: Supple. LUNGS: Scattered coarse breath sounds. HEART: Distant, regular. Borderline tachycardic, difficult to ascertain, do not hear a murmur. ABDOMEN: Distended, somewhat firm, elucidate tenderness. I do not think there are any peritoneal signs. EXTREMITIES: Lower extremities have significant edema. GENITOURINARY: Deferred. RECTAL: Deferred. LABORATORY DATA: Urine cultures described above with Klebsiella pneumoniae, it is multiple resistant in vitro susceptible to amikacin, cefepime, ceftazidime, carbapenem, levofloxacin, also Zosyn. ABGs from the 4th pH 7.208, pCO2 of 60.9, pO2 of 128.0, on FiO2 of 50%. Electrolytes: Sodium 141, potassium 4.4, chloride 105, bicarbonate is 23, anion gap of 13. BUN and creatinine 68 and 6.1. Abdominal ultrasound, no evidence of bile duct dilatation. Blood cultures collected at time of admission were blood sterile. ASSESSMENT: Early sepsis, multiorgan dysfunction including respiratory failure requiring significant supportive measures, now considering proceeding with dialysis as well. We will adjust antimicrobial therapy based on susceptibilities perhaps multiple foci of pyogenic infection, remains critically ill and monitor expectantly. Wean off support as allowed. <ELECTRONICALLY SIGNED> By: Mehran Roa MD 11/17/18 0705 1551 [id number] Roa MD /nt
[2018-11-17 07:57] LABS: BE -6.7 mmol/L (-2 to +3); PCO2 48.5 mmHg (35.0-45.0); PO2 118.2 mmHg (75.0-100.0)
[2018-11-17 08:01] LABS: pH 7.243 (7.340-7.450)
--- NOTE | 2018-11-17 08:31 | CON ---
[address] [address] CONSULTATION Name: PABLITO CHAVARRIA Room: [address] IN M.R.#: [id number] Admission: 11/10/18 Attend Phys: Marylou Meadows Discharge: Date of : 48 Report #: [id number] THIS REPORT FOR: //name// CC: Dave Kwon DATE OF SERVICE: 11/16/2018 REASON FOR CONSULTATION: Respiratory failure. HISTORY OF PRESENT ILLNESS: This is a 68-year-old female patient who was on BiPAP, lethargic, did not participate in the history. I reviewed medical records and discussed with the nursing staff. She is a 68-year-old female patient who was admitted to this facility after she presented to the ER on 11/10/2018 with blood in her diapers at the nursing facility where she is at. At baseline, she is on Eliquis and apparently she had some sort of lower extremity injury at the facility she was at and she was transferred to the ER for further evaluation. Her workup demonstrated she was in kekyj-ha-kouewmp renal failure and was felt it is related to hematuria. She was fluid overloaded and clinical picture of heart failure. She was admitted and initially, she was on 3 L oxygen and slowly her mental status deteriorated and respiratory status also worsened with worsening chest x-ray and signs of increasing vascular congestion. She ended up being placed on BiPAP yesterday. Her blood gas initially showed combined metabolic and respiratory acidosis. This morning, she was on BiPAP. She looked comfortable, tolerating the BiPAP and protecting the airways. Her CO2 was corrected, but she has evidence of metabolic acidosis. Bicarb was on the low side on the last ABGs. She was on BiPAP, tolerating that well and when stimulated, she would mumbles and she had some cough, but she did not open her eyes. She received minimal dose of Ativan around 0.5 mg, which per the RN helps the patient tolerated the BiPAP. During this hospitalization, she was evaluated by Urology and she has Linder catheter now and being irrigated by CBI. Her Eliquis was put on hold. She was also evaluated by Vascular Surgery and she had temporary dialysis catheter placed. She had so far 3 acute dialysis done with fluid removal. REVIEW OF SYSTEMS: Unobtainable due to the patient's condition. She is lethargic, although protecting the airways. PAST MEDICAL HISTORY: 1. Chronic renal failure, currently in acute renal failure. 2. Anasarca. 3. Hematuria. 4. Chronic lymphedema. 5. Morbid obesity. 6. Diabetes mellitus. 7. [place] [address] CONSULTATION Name: PABLITO CHAVARRIA Room: [address] IN M.R.#: [id number] Admission: 11/10/18 Attend Phys: Marylou Meadows Discharge: Date of : 48 Report #: [id number] 8. History of breast cancer, status post lumpectomy and radiation treatment. 9. section. 10. Fibromyalgia. 11. Cholecystectomy. 12. Arthritis. 13. Bilateral mastectomy. 14. Gallbladder surgery. 15. Tonsillectomy. 16. There is a mention of history of COPD in her records, although I could not confirm. There is no history of smoking. PAST SURGICAL HISTORY: As above. ALLERGIES: No known drug allergies. SOCIAL HISTORY: Again, per the record, she does not smoke or drink alcohol excessively. There is a resident of nursing facility. FAMILY HISTORY: None obtainable. PHYSICAL EXAMINATION: GENERAL: Morbidly obese lady with BMI 66.7, lying in bed, BiPAP mask in place. I did not take the BiPAP mask off, did not examine the oral cavity, but when stimulated, she would moan and cough. She is still protecting the airways. HEENT: Head: Normocephalic, atraumatic. Pupils unable to assess. The patient was uncooperative. External ears look normal. Oral cavity not examined due to BiPAP mask. NECK: Thick, did not feel any masses. Trachea is central. HEART: S1, S2. CHEST: Diminished air movement bilaterally, distant sounds. I did not hear wheezes, possible rhonchi at the bases. ABDOMEN: Obese, soft, lax, nontender. No masses felt. No rebound or rigidity. EXTREMITIES: Lower extremity edema +1 to +2 equal bilaterally. No calf tenderness. PSYCHIATRIC: Mood and affect could not be evaluated. NEUROLOGIC: Lethargic, protecting the airways, occasional cough, mumbles and moans when stimulated. SKIN: Some bruises noted in the lower extremities. LYMPHATICS: No palpable lymph nodes. LABORATORY DATA: Reviewed. She had multiple sets of ABGs. Initial ABGs on the 4th, 7.25/56/100. That was done on 5 liters oxygen. Her ABG last night, 7.29/39/119, this was on BiPAP. Her creatinine initially 5.3 with the dialysis, now it is 4.2, although at one point, it was 6.5. Her bicarbonate was 18 today. Her potassium is 4.7, sodium 138. Her white blood count is 15.9 today, compared to 6.6 upon hospitalization; hemoglobin dropped to 6.8 today, at [address] [place] [address] CONSULTATION Name: AURAPABLITO Mele Room: [address] IN .R.#: [id number] Admission: 11/10/18 Attend Phys: Marylou Meadows Discharge: Date of : 48 Report #: [id number] presentation was 7; and platelets 205. She had multiple imaging during hospitalization. Her chest x-ray showed progressive vascular congestion with signs of fluid overload and congestive heart failure. She had lower extremity CT scan, showed some edema, but did not show acute process or acute abscess. Her CT scan of the abdomen showed some thickened gallbladder with cardiomegaly and pleural effusion, small on that CT scan. IMPRESSION: 1. Acute hypoxic and hypercapnic respiratory failure. 2. Mental status change. 3. Lethargy. 4. Ceisp-rk-uayemxq renal failure. 5. Fluid overload. 6. Signs of congestive heart failure with pulmonary edema. 7. Metabolic acidosis. 8. Hematuria. 9. Anticoagulation at baseline. Her last echocardiogram in September of this year, EF was 60% with normal diastolic dysfunction. Her pulmonary artery pressure was 55 mmHg on that echocardiogram. Her current medications were reviewed. She is on broad spectrum antibiotics per ID for the complicated UTI. She has a Klebsiella in her urine. She is on steroids IV and scheduled nebulization treatment. At this point, she is tolerating the BiPAP S/T. She is pulling good volumes, although she is lethargic, but protecting the airways. However, she remains high risk for intubation. I would continue to monitor closely, be cautious with using sedatives, hypnotics. I will defer fluid management and diuresis to Nephrology service. With the current mental status, I would keep her n.p.o. until she is fully awake before I start feeding her. She is currently on broad spectrum antibiotic. Hopefully, with optimizing her fluid status, we will be able to wean her oxygen and BiPAP down. I suspect her mental status change is multifactorial in etiology, following along. CONDITION: Guarded. PROGNOSIS: Guarded. <ELECTRONICALLY SIGNED> By: Carrie Ann MD 11/17/18 0831 0957 0034Dkendal Ann MD /nt
[2018-11-18] VITALS (35 sets, daily range): BP systolic 136–197; BP diastolic 59–114
[2018-11-18 04:13] LABS: HEMATOCRIT 26.1 % (37.0-47.0); HEMOGLOBIN 8.2 gm/dL (12.0-15.0); MCH 26.9 pg (26.0-34.0); MCHC 31.3 g/dL (28.0-37.0); MPV 8.3 fl. (7.2-11.1); RBC 3.04 mil/uL (4.20-5.00); RDW-CV 18.8 % (10.5-14.5); WBC 12.6 thou/uL (4.0-11.0)
[2018-11-18 04:36] LABS: ALBUMIN 2.3 g/dL (3.4-5.0); CALCIUM 8.3 mg/dL (8.5-10.1); POTASSIUM 4.2 mmol/L (3.5-5.1); TOTAL BILIRUBIN 0.6 mg/dL (<0.1-1.0); TOTAL PROTEIN 6.4 g/dL (6.4-8.2)
[2018-11-18 04:37] LABS: CREATININE 3.8 mg/dL (0.6-1.3)
[2018-11-18 07:15] LABS: BE -2.1 mmol/L (-2 to +3); PCO2 47.6 mmHg (35.0-45.0); PO2 102.2 mmHg (75.0-100.0); pH 7.322 (7.340-7.450)
--- NOTE | 2018-11-18 22:22 | CON ---
[address] [address] CONSULTATION Name: PABLITO CHAVARRIA Room: [address] IN M.R.#: [id number] Admission: 11/10/18 Attend Phys: Marylou Meadows Discharge: Date of : 48 Report #: [id number] THIS REPORT FOR: //name// CC: Dave Kwon DATE OF SERVICE: 11/15/2018 HISTORY OF PRESENT ILLNESS: This is a 68-year-old female patient who is unable to provide much history. She is having pretty significant confusion. I talked to the nurse looking after this patient and he indicated that this patient was more responsive when she came in. This patient has multiple metabolic problems. She has kidney failure, for which she was started on dialysis. She has a history of hematuria. She has acute renal failure. She has morbid obesity. She has pretty significant respiratory difficulty. She apparently has a history of atrial fibrillation. Record also indicates pretty significant renal problems. She had a fall recently. She apparently has a generalized weakness. No family member is here, but I looked at the records and apparently this patient was functional until a few weeks ago according to the son's history in the record. She has a history of diabetes, hypertension, breast cancer, fibromyalgia, gallbladder, high cholesterol. PAST MEDICAL HISTORY: Unavailable except as described above. FAMILY HISTORY: Unavailable. SOCIAL HISTORY: She came from a alf facility. PHYSICAL EXAMINATION: The patient's examination is very limited. She will not cooperate with examination. She opens her eyes, but will not follow even simple commands. She moves her upper extremities. I cannot tell about lower extremity because she does not follow commands at all. She is on BiPAP and she is pretty unstable the best I can tell. LABORATORY DATA: Last blood gases have indicated a pCO2 of 60.9. IMPRESSION: This patient has numerous medical problems. Neurological consultation was requested because this patient has altered mental status. She has encephalopathy, but other etiology needs to be excluded. I do not know whether she can go down for CT scan or not and I asked the nurses to check with other physician. If she can go, it will be desirable to get a CT scan done. If she has weakness in the lower extremities that will need further workup also both musculoskeletal and I do not know whether she can go for that workup either. I will talk to Dr. Kwon, her hospitalist and I [place] [address] CONSULTATION Name: PABLITO CHAVARRIA Mele Room: [address] IN [facility]#: [id number] Admission: 11/10/18 Attend Phys: Marylou Meadows Discharge: Date of : 48 Report #: [id number] family to get more history and we will see when she is stable to get the workup done. <ELECTRONICALLY SIGNED> By: Enrike Farah MD [id number] Farah MD /geovanna
--- NOTE | 2018-11-18 22:22 | EEG ---
[address] [address] EEG STUDY REPORT Name: AURAPABLITO Room: [address] IN M.R.#: [id number] Admission: 11/10/18 Attend Phys: Marylou Meadows Discharge: Date of : 48 Report #: [id number] THIS REPORT FOR: //name// CC: Dave Kwon DATE OF SERVICE: 11/16/2018 This patient is being evaluated for altered mental status. The patient's EEG was done by placing the electrodes by standard 10-20 system of electrode placement. Both referential and sequential montages were used for recording. The background activity in this patient's EEG is about 5-6 Hz and 20 microvolt. It continued to be monotonously slow activity. Photic stimulation was unremarkable. No active epileptiform activity was noticed. IMPRESSION: This is an abnormal EEG, which will be consistent with a diagnosis of encephalopathy. However, the finding is nonspecific and can occur in multiple other etiologies like dementia, effect of psychotropic medication, etc. Clinical correlation is recommended. <ELECTRONICALLY SIGNED> By: Enrike Farah MD 11/18/18 2222 0753 0812Parfilomena Farah MD /nt
[2018-11-19] VITALS (26 sets, daily range): BP systolic 119–158; BP diastolic 62–91
[2018-11-19 05:17] LABS: HEMATOCRIT 25.7 % (37.0-47.0); MCH 27.1 pg (26.0-34.0); MCHC 31.3 g/dL (28.0-37.0); MCV 86.5 fL (80.0-100.0); MPV 8.4 fl. (7.2-11.1); RBC 2.97 mil/uL (4.20-5.00); WBC 13.3 thou/uL (4.0-11.0)
[2018-11-19 05:45] LABS: CALCIUM 8.7 mg/dL (8.5-10.1); CREATININE 4.4 mg/dL (0.6-1.3); POTASSIUM 4.2 mmol/L (3.5-5.1)
[2018-11-20] VITALS (23 sets, daily range): BP systolic 116–177; BP diastolic 46–140
[2018-11-20 05:16] LABS: HEMATOCRIT 24.7 % (37.0-47.0); HEMOGLOBIN 7.6 gm/dL (12.0-15.0); MCH 26.7 pg (26.0-34.0); MCHC 30.6 g/dL (28.0-37.0); MCV 87.3 fL (80.0-100.0); MPV 8.5 fl. (7.2-11.1); RBC 2.83 mil/uL (4.20-5.00); RDW-CV 19.5 % (10.5-14.5); WBC 12.1 thou/uL (4.0-11.0)
[2018-11-20 05:30] LABS: ALBUMIN 2.2 g/dL (3.4-5.0); CALCIUM 8.5 mg/dL (8.5-10.1); CREATININE 4.8 mg/dL (0.6-1.3); MAGNESIUM 2.3 mg/dL (1.8-2.4); POTASSIUM 4.2 mmol/L (3.5-5.1); TOTAL BILIRUBIN 0.5 mg/dL (<0.1-1.0); TOTAL PROTEIN 5.8 g/dL (6.4-8.2)
[2018-11-20 08:29] LABS: PCO2 44.7 mmHg (35.0-45.0)
[2018-11-20 08:31] LABS: BE 1.4 mmol/L (-2 to +3); pH 7.392 (7.340-7.450)
[2018-11-20 08:34] LABS: PO2 151.3 mmHg (75.0-100.0)
[2018-11-20 15:38] LABS: TOTAL CELL COUNT 3773 /mm3
[2018-11-20 15:39] LABS: BF RBC 1821875 /mm3
[2018-11-20 15:40] LABS: CLARITY CLOUDY; TOTAL VOLUME 30 ml
[2018-11-20 15:59] LABS: BF LYMPHOCYTES 1 %; BF MONOCYTES 6 %; BF POLYS 93 %; SOURCE LEG
[2018-11-21] VITALS (28 sets, daily range): BP systolic 130–191; BP diastolic 65–97
[2018-11-21 05:08] LABS: HEMATOCRIT 25.6 % (37.0-47.0); MCH 27.4 pg (26.0-34.0); MCHC 31.2 g/dL (28.0-37.0); MCV 88.1 fL (80.0-100.0); MPV 8.7 fl. (7.2-11.1); RBC 2.9 mil/uL (4.20-5.00); RDW-CV 19.5 % (10.5-14.5)
[2018-11-21 10:39] LABS: ALBUMIN 2.2 g/dL (3.4-5.0); CALCIUM 8.2 mg/dL (8.5-10.1); MAGNESIUM 2.2 mg/dL (1.8-2.4); POTASSIUM 4.1 mmol/L (3.5-5.1); TOTAL BILIRUBIN 0.6 mg/dL (<0.1-1.0); TOTAL PROTEIN 5.7 g/dL (6.4-8.2)
[2018-11-21 10:40] LABS: CREATININE 3.5 mg/dL (0.6-1.3)
[2018-11-22] VITALS (20 sets, daily range): BP systolic 90–168; BP diastolic 50–101
[2018-11-22 05:08] LABS: HEMOGLOBIN 7.9 gm/dL (12.0-15.0); MCH 26.9 pg (26.0-34.0); MCHC 30.6 g/dL (28.0-37.0); MPV 9.1 fl. (7.2-11.1); RBC 2.95 mil/uL (4.20-5.00); RDW-CV 19.8 % (10.5-14.5); WBC 11.2 thou/uL (4.0-11.0)
[2018-11-22 05:10] LABS: ALBUMIN 2.3 g/dL (3.4-5.0); CALCIUM 8.2 mg/dL (8.5-10.1); CREATININE 4.1 mg/dL (0.6-1.3); MAGNESIUM 2.2 mg/dL (1.8-2.4); TOTAL BILIRUBIN 0.6 mg/dL (<0.1-1.0); TOTAL PROTEIN 6.1 g/dL (6.4-8.2)
[2018-11-22 05:33] LABS: BE -1.2 mmol/L (-2 to +3); PCO2 44.2 mmHg (35.0-45.0); PO2 87.7 mmHg (75.0-100.0); pH 7.358 (7.340-7.450)
--- NOTE | 2018-11-22 18:00 | EEG ---
[address] [address] EEG STUDY REPORT Name: AURAPABLITO Room: [address] IN M.R.#: [id number] Admission: 11/10/18 Attend Phys: Marylou Meadows Discharge: Date of : 48 Report #: [id number] THIS REPORT FOR: //name// CC: Dave Kwon DATE OF SERVICE: 11/21/2018 This patient is being evaluated for altered mental status and weakness on the right side. EEG was done by placing the electrode by standard 10-20 system of electrode placement. Both referential and sequential montages were used for recording. Background activity in this patient's EEG is about 8-9 Hz and 30 microvolt. The patient became drowsy and that is associated with bilateral slowing and vertex sharp waves. Photic stimulation was unremarkable. Throughout the record, no active epileptiform activity was noticed. IMPRESSION: This patient's EEG is intermixed with some theta range slowing. That is a nonspecific abnormality, which can occur with drowsiness, effect of psychotropic medication, etc. Clinical correlation is recommended. <ELECTRONICALLY SIGNED> By: Enrike Farah MD 11/22/18 1800 2101Pbernabe Farah MD /nt
[2018-11-23] VITALS: BP 123/58
[2018-11-23 04:00] VITALS: BP 107/53
[2018-11-23 06:55] LABS: HEMOGLOBIN 7.2 gm/dL (12.0-15.0); MCH 27.9 pg (26.0-34.0); MCHC 31.4 g/dL (28.0-37.0); MCV 88.8 fL (80.0-100.0); RBC 2.59 mil/uL (4.20-5.00); RDW-CV 19.8 % (10.5-14.5); WBC 8.4 thou/uL (4.0-11.0)
[2018-11-23 06:58] LABS: CALCIUM 8.1 mg/dL (8.5-10.1); CREATININE 3.3 mg/dL (0.6-1.3); POTASSIUM 4.5 mmol/L (3.5-5.1)
[2018-11-23 08:00] VITALS: BP 135/61
[2018-11-23 12:02] VITALS: BP 144/86
[2018-11-23 16:29] VITALS: BP 143/79
[2018-11-23 20:00] VITALS: BP 147/74
[2018-11-24 00:30] VITALS: BP 107/59
[2018-11-24 04:15] VITALS: BP 126/78
[2018-11-24 04:25] LABS: HEMATOCRIT 23.9 % (37.0-47.0); HEMOGLOBIN 7.4 gm/dL (12.0-15.0); MCH 27.5 pg (26.0-34.0); MCHC 31.1 g/dL (28.0-37.0); MCV 88.6 fL (80.0-100.0); MPV 9.5 fl. (7.2-11.1); RBC 2.7 mil/uL (4.20-5.00); RDW-CV 20.9 % (10.5-14.5); WBC 7.5 thou/uL (4.0-11.0)
[2018-11-24 04:28] LABS: CREATININE 3.9 mg/dL (0.6-1.3); MAGNESIUM 2.1 mg/dL (1.8-2.4); POTASSIUM 4.8 mmol/L (3.5-5.1)
[2018-11-24 07:30] VITALS: BP 137/73
[2018-11-24 16:00] VITALS: BP 112/55
[2018-11-24 20:00] VITALS: BP 134/67
[2018-11-25] VITALS: BP 123/69
[2018-11-25 04:00] VITALS: BP 143/63
[2018-11-25 08:20] VITALS: BP 132/66
[2018-11-25 12:37] VITALS: BP 114/51
[2018-11-25 15:00] LABS: HEMATOCRIT 22.5 % (37.0-47.0); HEMOGLOBIN 7.1 gm/dL (12.0-15.0); MCHC 31.4 g/dL (28.0-37.0); MCV 89.3 fL (80.0-100.0); MPV 9.4 fl. (7.2-11.1); NUCLEATED RBCS 0 /100WBC; PLATELET COUNT* 98 thou/uL (150-400); RBC 2.52 mil/uL (4.20-5.00); RDW-CV 21.7 % (10.5-14.5); WBC 6.7 thou/uL (4.0-11.0)
[2018-11-25 15:20] LABS: ABSOLUTE EOSINOPHILS 0.3 thou/uL (0.0-0.7); ABSOLUTE LYMPHOCYTES 0.1 thou/uL (0.8-5.3); ABSOLUTE MONOCYTES 0.7 thou/uL (0.0-1.2); ABSOLUTE NEUTROPHILS 5.6 thou/uL (1.6-8.1); PLATELET ESTIMATE ADEQUATE
[2018-11-25 15:24] LABS: ALBUMIN 2.3 g/dL (3.4-5.0); CALCIUM 7.7 mg/dL (8.5-10.1); CREATININE 3.4 mg/dL (0.6-1.3); POTASSIUM 4.5 mmol/L (3.5-5.1); TOTAL BILIRUBIN 0.6 mg/dL (<0.1-1.0); TOTAL PROTEIN 5.6 g/dL (6.4-8.2)
[2018-11-25 16:53] VITALS: BP 113/71
[2018-11-25 20:00] VITALS: BP 136/72
[2018-11-26] VITALS: BP 107/64
[2018-11-26 04:00] VITALS: BP 104/56
[2018-11-26 08:54] VITALS: BP 148/73
[2018-11-26 13:31] VITALS: BP 134/60
[2018-11-26 17:47] VITALS: BP 120/66
[2018-11-26 20:00] VITALS: BP 139/64
[2018-11-27] VITALS: BP 152/76
[2018-11-27 04:00] VITALS: BP 141/80
[2018-11-27 16:00] VITALS: BP 126/56
[2018-11-27 16:04] LABS: ABSOLUTE EOSINOPHILS 0.1 thou/uL (0.0-0.7); ABSOLUTE LYMPHOCYTES 0.1 thou/uL (0.8-5.3); ABSOLUTE MONOCYTES 0.6 thou/uL (0.0-1.2); ABSOLUTE NEUTROPHILS 6.3 thou/uL (1.6-8.1); BASOPHILS 0.3 %; EOSINOPHILS 1.9 %; HEMATOCRIT 22.9 % (37.0-47.0); HEMOGLOBIN 7.2 gm/dL (12.0-15.0); LYMPHOCYTES 1.9 %; MCHC 31.5 g/dL (28.0-37.0); MCV 89.1 fL (80.0-100.0); MONOCYTES 8.9 %; MPV 9.4 fl. (7.2-11.1); NUCLEATED RBCS 0 /100WBC; PLATELET COUNT* 100 thou/uL (150-400); RBC 2.57 mil/uL (4.20-5.00); RDW-CV 21.4 % (10.5-14.5); WBC 7.2 thou/uL (4.0-11.0)
[2018-11-27 16:15] LABS: ALBUMIN 2.4 g/dL (3.4-5.0); POTASSIUM 4.3 mmol/L (3.5-5.1); TOTAL BILIRUBIN 0.6 mg/dL (<0.1-1.0); TOTAL PROTEIN 5.6 g/dL (6.4-8.2)
[2018-11-27 19:30] VITALS: BP 116/73
[2018-11-28 00:39] VITALS: BP 114/71
[2018-11-28 04:00] VITALS: BP 134/62
[2018-11-28 08:00] VITALS: BP 109/65
[2018-11-28 11:30] VITALS: BP 116/65
[2018-11-28 16:13] VITALS: BP 103/70
[2018-11-28 20:00] VITALS: BP 120/72
[2018-11-29] VITALS: BP 124/59
[2018-11-29 04:00] VITALS: BP 112/76
[2018-11-29 05:15] LABS: HEMATOCRIT 23.3 % (37.0-47.0); HEMOGLOBIN 7.2 gm/dL (12.0-15.0); MCH 28.4 pg (26.0-34.0); MCHC 30.9 g/dL (28.0-37.0); MCV 92.2 fL (80.0-100.0); MPV 9.9 fl. (7.2-11.1); RBC 2.53 mil/uL (4.20-5.00); RDW-CV 22.1 % (10.5-14.5); WBC 5.2 thou/uL (4.0-11.0)
[2018-11-29 05:27] LABS: ALBUMIN 2.5 g/dL (3.4-5.0); PHOSPHORUS* 5.8 mg/dL (2.5-4.9); POTASSIUM 5.2 mmol/L (3.5-5.1)
[2018-11-29 05:38] LABS: CREATININE 4.3 mg/dL (0.6-1.3)
[2018-11-29 08:00] VITALS: BP 102/51
[2018-11-29 11:30] VITALS: BP 104/54
[2018-11-29 20:00] VITALS: BP 108/51
[2018-11-30] VITALS: BP 122/59
[2018-11-30 04:00] VITALS: BP 150/57
[2018-11-30 08:00] VITALS: BP 130/65
[2018-11-30 12:01] VITALS: BP 111/46
[2018-11-30 15:50] VITALS: BP 116/63
[2018-11-30 20:00] VITALS: BP 108/55
[2018-12-01 00:15] VITALS: BP 124/64
[2018-12-01 04:00] VITALS: BP 125/74
--- NOTE | 2018-12-01 05:56 | CON ---
[address] [address] CONSULTATION Name: PABLITO CHAVARRIA Room: [address] IN M.R.#: [id number] Admission: 11/10/18 Attend Phys: Marylou Meadows Discharge: Date of : 48 Report #: [id number] THIS REPORT FOR: //name// CC: Dave Kwon DATE OF SERVICE: 11/11/2018 NEPHROLOGY CONSULTATION: CONSULTING PHYSICIANS: Dr. Tpaia. Dr. Kwon. REASON FOR NEPHROLOGY CONSULTATION: Acute kidney injury and chronic kidney disease stage 4. REASON FOR ADMISSION: Vaginal bleeding. HISTORY OF PRESENT ILLNESS: This is a 68-year-old morbidly obese female who was recently discharged from [facility], came back again from her nursing facility when she was noticed that her diaper had some blood in it. It was reported that it was likely vaginal bleeding, but it was not clear. The patient is on anticoagulation as well. The patient was recently in the hospital in September of this year with a fall and she was found to have lower extremity edema, which was deemed chronic in nature and she had some cellulitis and she was treated for that. Her creatinine runs between 2.7-2.9. She does have CKD stage 4, likely diabetic nephropathy. Yesterday, on admission, she was also found to have hematuria and Linder catheter was placed with gross hematuria and CBI was started. Urology has also been consulted for her. Her BUN and creatinine are worse from before. BUN of 69 and creatinine of 5.4. She is thirsty. Her mucous membranes are really dry. She does take Lasix 20 mg a day as an outpatient. She is otherwise having no problems currently. ALLERGIES: No known allergies. REVIEW OF SYSTEMS: As mentioned in history of present illness, otherwise negative. PAST MEDICAL AND SURGICAL HISTORY: Includes diabetes type 2 and chronic kidney disease stage 4, baseline creatinine 2.7-2.9, likely diabetic nephropathy and hypertensive nephropathy, dyslipidemia, right-sided breast cancer with lumpectomy 1992 with radiation treatments, x 2, fibromyalgia, cholecystectomy, abdominal hernia repair, arthritis, bilateral mastectomy, gallbladder repair, tonsillectomy in 1992. HOME MEDICATIONS: Include minocycline, ferrous sulfate, apixaban, Eliquis, acetaminophen, carvedilol, Lasix 20 mg once a day, duloxetine, oxybutynin, [place] [address] CONSULTATION Name: PABLITO CHAVARRIA Room: [address] IN [facility]#: [id number] Admission: 11/10/18 Attend Phys: Marylou Meadows Discharge: Date of : 48 Report #: [id number] anastrozole, rosuvastatin. FAMILY HISTORY: Noncontributory in this scenario, but it was reviewed. SOCIAL HISTORY: She is in a nursing facility, does not smoke or take alcohol use or illicit drugs. PHYSICAL EXAMINATION: VITAL SIGNS: Blood pressure is 123/63, respiratory rate is 16, temperature is 36.7, pulse rate is 88, and pulse ox on 3 liters oxygen by nasal cannula 94%. GENERAL: She is awake and alert and oriented x 3. HEAD AND EYES: Atraumatic, normocephalic and mucous membranes are extremely dry. NECK: There is no JVD. CHEST: Bilateral clear to auscultation. Anteriorly, no crackles or wheezing. CARDIOVASCULAR: S1, S2 normal. No murmurs heard. ABDOMEN: Obese, otherwise no abdominal wall edema and soft, nondistended, nontender. EXTREMITIES: Lower extremities: There is more than 4+ edema bilaterally, nonpitting, chronic looking with venous stasis changes. GENITOURINARY: Linder catheter in place with gross hematuria. She is on CBI. NEUROLOGICAL FUNCTION: Including gross neurological function seems to be intact. She does have generalized weakness. PSYCHIATRIC: Mood and affect seemed to be normal. LABORATORY DATA: Hemoglobin is 7. It looks like her hemoglobin was running around 9.6-10 when she was here in September, had a BUN of 69, creatinine 5.4, potassium is 4.2, sodium is 143 and other labs are reviewed. IMAGING: Pelvic transvaginal ultrasound, pelvic CT, lower extremity CT were reviewed. ASSESSMENT: 1. Acute kidney injury on chronic kidney disease stage 4, likely volume depletion, CPK also needs to be checked. CT scan did not show any evidence of obstructive pathology at the level of her kidneys. She does have gross hematuria currently. Baseline creatinine is around 2.7-2.9 and creatinine 5.4 on presentation at this time. She is on Lasix at home, which has been stopped. 2. Acute anemia on top of chronic anemia, iron studies have been ordered, but she had reportedly some vaginal bleeding and she also has gross hematuria. She has been on anticoagulation, Eliquis. We will defer further to primary and Urology. 3. Diabetes type 2 as per primary. 4. Hypertension: Blood pressure is currently controlled. 5. Thickened bladder wall on CT scan, Urology to evaluate her. 6. Right adrenal adenoma increased in size from before, can be followed up as [facility] [address] [place] [address] CONSULTATION Name: PABLITO CHAVARRIA Room: [address] IN [facility]#: [id number] Admission: 11/10/18 Attend Phys: Marylou Meadows Discharge: Date of : 48 Report #: [id number] an outpatient. She can actually see Endocrinology for that. PLAN: 1. Continue IV fluids, normal saline at 100 mL an hour, we will check iron parameters and also please follow up CPK. 2. The patient has a history of nephrotic range proteinuria, likely because of diabetes. I have ordered some serological workup because of hematuria. Serum immunofixation was normal in September of this year, so there is no need to repeat that. 3. CBI: There is no acute need for dialysis, but we will continue to follow closely and Urology is to evaluate the patient. 4. Avoid NSAIDs and nephrotoxic agents and avoid diuretic for now. Thank you for this consultation. We will continue to follow along with you. The patient also should be on a renal diet. Discussed with the patient and patient's nurse. <ELECTRONICALLY SIGNED> By: Sandra Sims MD 12/01/18 0556 0914 0129Arob Sims MD /nt
[2018-12-01 07:35] VITALS: BP 148/76
[2018-12-01 16:00] VITALS: BP 118/58
[2018-12-01 20:00] VITALS: BP 146/64
[2018-12-02] VITALS: BP 173/78
[2018-12-02 04:00] VITALS: BP 119/74
[2018-12-02 05:05] LABS: HEMATOCRIT 22.3 % (37.0-47.0); MCH 28.8 pg (26.0-34.0); MCHC 31.3 g/dL (28.0-37.0); MCV 91.9 fL (80.0-100.0); MPV 9.9 fl. (7.2-11.1); RBC 2.43 mil/uL (4.20-5.00); RDW-CV 22.6 % (10.5-14.5); WBC 4.5 thou/uL (4.0-11.0)
[2018-12-02 05:32] LABS: CALCIUM 8.3 mg/dL (8.5-10.1); CREATININE 3.3 mg/dL (0.6-1.3); MAGNESIUM 1.6 mg/dL (1.8-2.4); POTASSIUM 4.2 mmol/L (3.5-5.1)
[2018-12-02 09:30] VITALS: BP 121/65
[2018-12-02 11:30] VITALS: BP 135/67
[2018-12-02 19:30] VITALS: BP 135/72
[2018-12-03] VITALS: BP 122/71
[2018-12-03 03:51] VITALS: BP 135/71
[2018-12-03 08:00] VITALS: BP 147/86
[2018-12-03 12:00] VITALS: BP 108/54
[2018-12-03 16:00] VITALS: BP 113/57
[2018-12-03 20:00] VITALS: BP 128/51
[2018-12-04] VITALS: BP 121/46
[2018-12-04 04:00] VITALS: BP 134/55
[2018-12-04 05:10] LABS: HEMATOCRIT 21.7 % (37.0-47.0); MCHC 31.5 g/dL (28.0-37.0); MPV 9.5 fl. (7.2-11.1); RBC 2.36 mil/uL (4.20-5.00); RDW-CV 22.4 % (10.5-14.5); WBC 4.2 thou/uL (4.0-11.0)
[2018-12-04 05:24] LABS: CALCIUM 8.3 mg/dL (8.5-10.1); MAGNESIUM 1.8 mg/dL (1.8-2.4); POTASSIUM 4.6 mmol/L (3.5-5.1)
[2018-12-04 05:26] LABS: CREATININE 4.9 mg/dL (0.6-1.3)
[2018-12-04 05:33] LABS: HEMOGLOBIN 6.8 gm/dL (12.0-15.0)
[2018-12-04 08:00] VITALS: BP 111/51
[2018-12-04 08:58] VITALS: BP 125/71; BP 127/67
[2018-12-04 14:08] LABS: HEMATOCRIT 25.1 % (37.0-47.0); HEMOGLOBIN 7.9 gm/dL (12.0-15.0)
[2018-12-04 15:00] VITALS: BP 130/70
[2018-12-04 20:00] VITALS: BP 113/52
[2018-12-05] VITALS: BP 126/62
[2018-12-05 04:00] VITALS: BP 141/63
[2018-12-05 05:16] LABS: HEMOGLOBIN 7.6 gm/dL (12.0-15.0); MCH 28.7 pg (26.0-34.0); MCHC 31.6 g/dL (28.0-37.0); MCV 90.7 fL (80.0-100.0); MPV 9.1 fl. (7.2-11.1); RBC 2.65 mil/uL (4.20-5.00); RDW-CV 21.5 % (10.5-14.5); WBC 4.4 thou/uL (4.0-11.0)
[2018-12-05 05:28] LABS: CALCIUM 8.1 mg/dL (8.5-10.1); MAGNESIUM 1.7 mg/dL (1.8-2.4); POTASSIUM 4.1 mmol/L (3.5-5.1)
[2018-12-05 05:30] LABS: CREATININE 3.7 mg/dL (0.6-1.3)
[2018-12-05 08:26] VITALS: BP 131/63
[2018-12-05 11:41] VITALS: BP 142/53
[2018-12-05 16:44] VITALS: BP 112/59
[2018-12-05 20:49] VITALS: BP 136/71
[2018-12-06] VITALS: BP 148/87
[2018-12-06 04:17] VITALS: BP 140/71
[2018-12-06 07:42] VITALS: BP 145/61
[2018-12-06 11:43] VITALS: BP 99/54
[2018-12-06 16:36] VITALS: BP 113/80
[2018-12-06 20:11] VITALS: BP 114/58
[2018-12-07] VITALS: BP 120/53
[2018-12-07 04:20] VITALS: BP 109/61
[2018-12-07 05:46] LABS: HEMATOCRIT 23.1 % (37.0-47.0); HEMOGLOBIN 7.2 gm/dL (12.0-15.0); MCH 28.4 pg (26.0-34.0); MCHC 31.1 g/dL (28.0-37.0); MCV 91.3 fL (80.0-100.0); MPV 8.9 fl. (7.2-11.1); RBC 2.53 mil/uL (4.20-5.00); RDW-CV 21.5 % (10.5-14.5); WBC 3.6 thou/uL (4.0-11.0)
[2018-12-07 12:07] VITALS: BP 102/53
[2018-12-07 16:27] VITALS: BP 111/47
[2018-12-07 20:02] VITALS: BP 133/53
[2018-12-08] VITALS: BP 128/51
[2018-12-08 04:00] VITALS: BP 113/54
[2018-12-08 19:46] VITALS: BP 105/43
[2018-12-09] VITALS: BP 113/54
[2018-12-09 10:36] VITALS: BP 111/59
[2018-12-09 16:13] VITALS: BP 98/50
[2018-12-09 19:55] VITALS: BP 108/55
[2018-12-10] VITALS: BP 111/59
[2018-12-10 05:15] LABS: HEMATOCRIT 23.6 % (37.0-47.0); HEMOGLOBIN 7.2 gm/dL (12.0-15.0)
[2018-12-10 15:55] VITALS: BP 99/61
[2018-12-10 19:55] VITALS: BP 100/53
[2018-12-11] VITALS: BP 98/46
[2018-12-11 08:00] VITALS: BP 110/61
[2018-12-11 16:16] VITALS: BP 125/54
[2018-12-11 20:00] VITALS: BP 97/41
[2018-12-12 04:00] VITALS: BP 116/58
[2018-12-12 06:01] LABS: HEMATOCRIT 25.2 % (37.0-47.0); HEMOGLOBIN 7.7 gm/dL (12.0-15.0); MCH 28.4 pg (26.0-34.0); MCHC 30.5 g/dL (28.0-37.0); MCV 93.2 fL (80.0-100.0); MPV 7.7 fl. (7.2-11.1); RBC 2.71 mil/uL (4.20-5.00); RDW-CV 23.2 % (10.5-14.5); WBC 3.1 thou/uL (4.0-11.0)
[2018-12-12 06:21] LABS: ALBUMIN 2.4 g/dL (3.4-5.0); CALCIUM 8.7 mg/dL (8.5-10.1); CREATININE 4.3 mg/dL (0.6-1.3); POTASSIUM 4.2 mmol/L (3.5-5.1); TOTAL BILIRUBIN 0.5 mg/dL (<0.1-1.0); TOTAL PROTEIN 6.1 g/dL (6.4-8.2)
[2018-12-12 07:37] LABS: HEPATITIS B SURFACE AG Negative (Negative)
[2018-12-12 08:00] VITALS: BP 116/51
[2018-12-12 11:45] VITALS: BP 114/40
[2018-12-12 16:36] VITALS: BP 106/60
[2018-12-12 19:50] VITALS: BP 111/56
[2018-12-13] VITALS: BP 138/40
[2018-12-13 08:07] VITALS: BP 108/49
[2018-12-13] MEDS ORDERED: HUMALOG100 UNIT/1 SUBQ (09:34)
[2018-12-13] MEDS ORDERED: CATAPRES-TTS 20.2 MG TRANSDERM (09:34)
[2018-12-13] MEDS ORDERED: LANTUS100 UNIT/M SUBQ (09:34)
[2018-12-13] MEDS ORDERED: NEXIUM40 MG PO (09:34)
[2018-12-13] MEDS ORDERED: EPOGEN2000 UNIT/ IVPUSH (09:34)
[2018-12-13] MEDS ORDERED: IPRAT-ALBUT 0.5-3 ML INH (09:34)
== END 2018-12-13 14:12 | DRG 871 ==
LOC: M.ERS 18:31 → M.2W 21:19 → M.TBA-ER 21:19 → M.2W 23:43 → M.ICU 11-16 15:30 → M.2W 11-22 20:30
PROVIDERS: Internal Medicine; Internal Medicine Nephrology; Personal Emergency Response Attendant; Physician Assistant; ADMIT Internal Medicine
PROC: 5A1D70Z Performance of Urinary Filtration, Intermittent, Less than 6 Hours Per Day (ICD-10-PCS; principal; 2018-11-13)
PROC: 02HV33Z Insertion of Infusion Device into Superior Vena Cava, Percutaneous Approach (ICD-10-PCS; principal; 2018-11-13)
PROC: B548ZZA Ultrasonography of Superior Vena Cava, Guidance (ICD-10-PCS; principal; 2018-11-13)
PROC: 0JH63XZ Insertion of Tunneled Vascular Access Device into Chest Subcutaneous Tissue and Fascia, Percutaneous Approach (ICD-10-PCS; principal; 2018-11-13)
PROC: 5A1D70Z Performance of Urinary Filtration, Intermittent, Less than 6 Hours Per Day (ICD-10-PCS; 2018-11-14)
PROC: 5A09357 Assistance with Respiratory Ventilation, Less than 24 Consecutive Hours, Continuous Positive Airway Pressure (ICD-10-PCS; 2018-11-14)
PROC: 5A1D70Z Performance of Urinary Filtration, Intermittent, Less than 6 Hours Per Day (ICD-10-PCS; 2018-11-15)
PROC: 5A09357 Assistance with Respiratory Ventilation, Less than 24 Consecutive Hours, Continuous Positive Airway Pressure (ICD-10-PCS; 2018-11-15)
PROC: 5A09357 Assistance with Respiratory Ventilation, Less than 24 Consecutive Hours, Continuous Positive Airway Pressure (ICD-10-PCS; 2018-11-16)
PROC: 30233N1 Transfusion of Nonautologous Red Blood Cells into Peripheral Vein, Percutaneous Approach (ICD-10-PCS; 2018-11-16)
PROC: 5A09357 Assistance with Respiratory Ventilation, Less than 24 Consecutive Hours, Continuous Positive Airway Pressure (ICD-10-PCS; 2018-11-17)
PROC: 5A09357 Assistance with Respiratory Ventilation, Less than 24 Consecutive Hours, Continuous Positive Airway Pressure (ICD-10-PCS; 2018-11-18)
PROC: 5A09357 Assistance with Respiratory Ventilation, Less than 24 Consecutive Hours, Continuous Positive Airway Pressure (ICD-10-PCS; 2018-11-19)
PROC: 5A09357 Assistance with Respiratory Ventilation, Less than 24 Consecutive Hours, Continuous Positive Airway Pressure (ICD-10-PCS; 2018-11-20)
PROC: 0J9N3ZX Drainage of Right Lower Leg Subcutaneous Tissue and Fascia, Percutaneous Approach, Diagnostic (ICD-10-PCS; 2018-11-20)
PROC: 5A09357 Assistance with Respiratory Ventilation, Less than 24 Consecutive Hours, Continuous Positive Airway Pressure (ICD-10-PCS; 2018-11-23)
PROC: 5A1D70Z Performance of Urinary Filtration, Intermittent, Less than 6 Hours Per Day (ICD-10-PCS; 2018-11-27)
PROC: 5A1D70Z Performance of Urinary Filtration, Intermittent, Less than 6 Hours Per Day (ICD-10-PCS; 2018-11-29)
PROC: 5A1D70Z Performance of Urinary Filtration, Intermittent, Less than 6 Hours Per Day (ICD-10-PCS; 2018-12-01)
PROC: 5A1D70Z Performance of Urinary Filtration, Intermittent, Less than 6 Hours Per Day (ICD-10-PCS; 2018-12-04)
PROC: 5A1D70Z Performance of Urinary Filtration, Intermittent, Less than 6 Hours Per Day (ICD-10-PCS; 2018-12-06)
PROC: 5A1D70Z Performance of Urinary Filtration, Intermittent, Less than 6 Hours Per Day (ICD-10-PCS; 2018-12-08)
PROC: 5A1D70Z Performance of Urinary Filtration, Intermittent, Less than 6 Hours Per Day (ICD-10-PCS; 2018-12-11)
PROC: 5A1D70Z Performance of Urinary Filtration, Intermittent, Less than 6 Hours Per Day (ICD-10-PCS; 2018-12-13)
DX: A41.9 Sepsis, unspecified organism (principal); E43 Unspecified severe protein-calorie malnutrition; I50.41 Acute combined systolic (congestive) and diastolic (congestive) heart failure; G93.41 Metabolic encephalopathy; J18.9 Pneumonia, unspecified organism; J96.21 Acute and chronic respiratory failure with hypoxia; J96.22 Acute and chronic respiratory failure with hypercapnia; N17.0 Acute kidney failure with tubular necrosis; N18.6 End stage renal disease; Z68.44 Body mass index [BMI] 60.0-69.9, adult; E87.2 Acidosis; D62 Acute posthemorrhagic anemia; J98.11 Atelectasis; D61.818 Other pancytopenia; I13.2 Hypertensive heart and chronic kidney disease with heart failure and with stage 5 chronic kidney disease, or end stage renal disease; E66.01 Morbid (severe) obesity due to excess calories; D35.01 Benign neoplasm of right adrenal gland; N30.91 Cystitis, unspecified with hematuria; M79.7 Fibromyalgia; I48.91 Unspecified atrial fibrillation; B96.1 Klebsiella pneumoniae [K. pneumoniae] as the cause of diseases classified elsewhere; I87.2 Venous insufficiency (chronic) (peripheral); E11.65 Type 2 diabetes mellitus with hyperglycemia; Z16.12 Extended spectrum beta lactamase (ESBL) resistance; S80.11XA Contusion of right lower leg, initial encounter; X58.XXXA Exposure to other specified factors, initial encounter; G47.33 Obstructive sleep apnea (adult) (pediatric); N39.46 Mixed incontinence; D63.1 Anemia in chronic kidney disease; D63.8 Anemia in other chronic diseases classified elsewhere; E11.22 Type 2 diabetes mellitus with diabetic chronic kidney disease; E78.5 Hyperlipidemia, unspecified; M19.90 Unspecified osteoarthritis, unspecified site; Z85.3 Personal history of malignant neoplasm of breast; Z92.3 Personal history of irradiation; Z98.891 History of uterine scar from previous surgery; Z91.19 Patient's noncompliance with other medical treatment and regimen; Z90.13 Acquired absence of bilateral breasts and nipples; Z90.49 Acquired absence of other specified parts of digestive tract; Z79.4 Long term (current) use of insulin; Z79.01 Long term (current) use of anticoagulants; Z79.899 Other long term (current) drug therapy; Y93.89 Activity, other specified; Y92.89 Other specified places as the place of occurrence of the external cause; Y99.8 Other external cause status

== ENCOUNTER 2019-04-16 15:10 | Inpatient (IN) | payer MEDICARE, OTHER ==
[~2019-04-16] VITALS: Ht 175.3 cm; Wt 135.6 kg
--- NOTE | ~2019-04-16 | CON ---
[address] [address] CONSULTATION Name: AURAPABLITO Mele Room: [address] IN M.R.#: [id number] Admission: 04/16/19 Attend Phys: Gabriella Harris MD Discharge: Date of : 48 Report #: [id number] THIS REPORT FOR: //name// CC: [place] physician/PCP Gabriella Harris DATE OF SERVICE: 04/17/2019 REQUESTING PHYSICIAN: Dr. Harris. REASON FOR CONSULTATION: Assisting providing dialysis. HISTORY OF PRESENT ILLNESS: The patient is a 68-year-old female with medical history significant for end-stage renal disease, anasarca, history of morbid obesity, chronic atrial fibrillation, diabetes mellitus type 2. She presents with the problems regarding her dialysis. Apparently, there are no outpatient shifts available for her at this point, so she is here according to the patient to be dialyzed. She also was found in atrial fibrillation with rapid ventricular response. Blood pressure was elevated. PAST MEDICAL HISTORY: As I mentioned earlier. SOCIAL HISTORY: No tobacco, no alcohol abuse. FAMILY HISTORY: Negative for renal disease. MEDICATIONS: Prior to admission reviewed. REVIEW OF SYSTEMS: No chest pain, no fever, no chills, no nausea, no vomiting, no diarrhea, no constipation. PHYSICAL EXAMINATION: GENERAL: Awake, alert, oriented. VITAL SIGNS: Blood pressure of 90/66, heart rate 76 irregular, respiratory rate 20, afebrile. HEENT: Pupils round. NECK: Fatty. LUNGS: Clear. CARDIOVASCULAR: Irregular rate. ABDOMEN: Soft. EXTREMITIES: Lower extremities, no edema. She has a tunneled dialysis catheter in the left internal jugular vein. LABORATORY DATA: Lab report revealed hemoglobin 12.8, serum sodium 139, potassium 5.1, chloride 105, carbon dioxide 16, BUN 93, creatinine 10[place] [address] CONSULTATION Name: PABLITO CHAVARRIA Room: [address]#: [id number] Admission: 04/16/19 Attend Phys: Gabriella Harris MD Discharge: Date of : 48 Report #: [id number] ASSESSMENT: 1. End-stage renal disease. 2. Diabetes mellitus type 2. 3. Metabolic acidosis. 4. Morbid obesity. 5. History of hypertension. She was hypotensive today. PLAN: 1. We will need to decrease her blood pressure medications and Catapres TTS 2 was appropriately stopped today. 2. She will be dialyzed today and then tomorrow again to put her back on her Tuesday, Tuesday and Tuesday schedule. By: 1059 1318Abenedict Serrano MD /nt
[~2019-04-16 15:10] MED LIST changes: +CATAPRES-TTS 20.2 MG TRANSDERM; +EPOGEN2000 UNIT/ IVPUSH; +HUMALOG100 UNIT/1 SUBQ; +IPRAT-ALBUT 0.5-3 ML INH; +LANTUS100 UNIT/M SUBQ; +MILK OF MA400 MG/5 M PO; +NEXIUM40 MG PO; +NORCO 5-325 TA1 EACH PO; +NYAMYC15 GM TOP; +UNICOMPLEX M TA1 TA1 PO
[2019-04-16 15:11] VITALS: BP 147/89
[2019-04-16] MEDS ORDERED: RENVELA0.8 GM (15:18)
[2019-04-16] MEDS ORDERED: CALCIUM CARBON500 MG PO (15:20)
[2019-04-16] MEDS ORDERED: ATORVASTATIN CA80 MG PO (15:20)
[2019-04-16 15:39] LABS: ABSOLUTE BASOPHILS 0.1 thou/uL (0.0-0.2); ABSOLUTE EOSINOPHILS 0.5 thou/uL (0.0-0.7); ABSOLUTE LYMPHOCYTES 0.8 thou/uL (0.8-5.3); ABSOLUTE MONOCYTES 0.8 thou/uL (0.0-1.2); ABSOLUTE NEUTROPHILS 7.3 thou/uL (1.6-8.1); BASOPHILS 0.7 %; EOSINOPHILS 5.5 %; HEMATOCRIT 41.1 % (37.0-47.0); HEMOGLOBIN 13.2 gm/dL (12.0-15.0); LYMPHOCYTES 8.3 %; MCHC 32.2 g/dL (28.0-37.0); MCV 96.3 fL (80.0-100.0); MPV 7.9 fl. (7.2-11.1); NUCLEATED RBCS 0 /100WBC; PLATELET COUNT* 222 thou/uL (150-400); POLYS 77.5 %; RBC 4.27 mil/uL (4.20-5.00); RDW-CV 17.6 % (10.5-14.5); WBC 9.5 thou/uL (4.0-11.0)
[2019-04-16 15:49] LABS: CALCIUM 9.4 mg/dL (8.5-10.1); POTASSIUM 4.6 mmol/L (3.5-5.1)
[2019-04-16 15:50] LABS: APTT 27.1 Seconds (25.0-31.3); INR 1.1; PROTIME 10.9 Seconds (9.20-11.50)
[2019-04-16 15:59] LABS: ALBUMIN 3.2 g/dL (3.4-5.0); TOTAL BILIRUBIN 0.6 mg/dL (<0.1-1.0); TOTAL PROTEIN 7.3 g/dL (6.4-8.2)
[2019-04-16 17:21] LABS: URINE BILIRUBIN NEGATIVE (Negative); URINE BLOOD 2+ (Negative); URINE CLARITY SL CLOUDY; URINE COLOR YELLOW; URINE GLUCOSE-RANDOM NEGATIVE (Negative); URINE KETONES NEGATIVE (Negative); URINE NITRITE-REFLEX NEGATIVE (Negative); URINE PROTEIN 2+ (Negative); URINE SPECIFIC GRAVITY 1.025 (1.005-1.030); URINE UROBILINOGEN 0.2 E.U./dl (0.2-1.0)
[2019-04-16 17:22] LABS: URINE LEUKOCYTES-REFLEX 3+ (Negative)
[2019-04-16 17:25] LABS: CASTS None Seen /LPF (None Seen); CRYSTALS None Seen /LPF (None Seen); SQUAMOUS NONE SEEN /LPF (0-3); URINE RBC >20 Many /HPF (0-2); URINE WBC-REFLEX >25 Many /HPF (0-5)
[2019-04-16 20:48] VITALS: BP 172/94
[2019-04-16 21:12] VITALS: BP 148/83
[2019-04-17] VITALS: BP 113/65
[2019-04-17 04:00] VITALS: BP 127/66
[2019-04-17 05:56] LABS: HEMATOCRIT 41.8 % (37.0-47.0); HEMOGLOBIN 12.8 gm/dL (12.0-15.0); MCH 30.6 pg (26.0-34.0); MCHC 30.6 g/dL (28.0-37.0); MCV 100.1 fL (80.0-100.0); MPV 8.3 fl. (7.2-11.1); RBC 4.18 mil/uL (4.20-5.00); WBC 8.1 thou/uL (4.0-11.0)
[2019-04-17 06:06] LABS: ALBUMIN 2.8 g/dL (3.4-5.0); CREATININE 10.6 mg/dL (0.6-1.3); MAGNESIUM 2.8 mg/dL (1.8-2.4); POTASSIUM 5.1 mmol/L (3.5-5.1); TOTAL BILIRUBIN 0.5 mg/dL (<0.1-1.0); TOTAL PROTEIN 6.8 g/dL (6.4-8.2)
[2019-04-17 07:05] VITALS: BP 90/66
[2019-04-17 12:17] VITALS: BP 120/64
--- NOTE | 2019-04-17 17:14 | EKG ---
[place] [address] ELECTROCARDIOGRAM REPORT Name: PABLITO CHAVARRIA Room: [address] ADM IN .R.#: [id number] Admission: 04/16/19 Attend Phys: Gabriella Harris MD Discharge: Date of : 48 Report #: [id number] THIS REPORT FOR: //name// [facility] ED Test Date: 2019-04-16 Test Time: 15:37:41 Pat Name: PABLITO CHAVARRIA Department: Room: [facility] Gender: F Traffic I Manager: ESTHER : 1950 Requested By: Harshad Pierce Order Number: [id number] MD: Curry Peralta Measurements Intervals [place] Rate: 99 P: [place]: QRS: -31 QRSD: 102 T: 69 QT: 370 QTc: 475 Interpretive Statements Atrial fibrillation Left axis deviation Low voltage, extremity leads Probable anteroseptal infarct, old Compared to ECG 11/14/2018 10:52:29 Left-axis deviation now present Low QRS voltage now present Myocardial infarct finding still present Electronically Signed On 04-17-2019 17:13:49 SENIOR SQL SERVER DATABASE DEVELOPER by Curry Peralta [email or web address] <ELECTRONICALLY SIGNED> By: Curry Peralta MD, FACC 04/17/19 1713 1537 1537 Curry Peralta MD, FAC /EPI
[2019-04-17 20:01] VITALS: BP 124/86
[2019-04-17 23:34] VITALS: BP 119/70
[2019-04-18 04:00] VITALS: BP 126/67
[2019-04-18 07:12] LABS: HEPATITIS B SURFACE AG Negative (Negative)
[2019-04-18 16:00] VITALS: BP 113/72
[2019-04-18 20:00] VITALS: BP 120/60
[2019-04-19] VITALS: BP 130/71
[2019-04-19 04:00] VITALS: BP 124/69
[2019-04-19 08:00] VITALS: BP 136/78
[2019-04-19 12:10] VITALS: BP 150/84
[2019-04-19] MEDS ORDERED: LEVAQUIN 500 M500 M3 PO (14:35)
[2019-04-19 14:56] VITALS: BP 150/84
== END 2019-04-19 17:01 | disposition home or self-care (01) | DRG 689 ==
LOC: M.ERS 15:10 → M.2W 16:54 → M.TBA-ER 16:54 → M.2W 20:32
PROVIDERS: Emergency Medicine Emergency Medical Services; Internal Medicine Nephrology; ADMIT Internal Medicine
PROC: 5A1D70Z Performance of Urinary Filtration, Intermittent, Less than 6 Hours Per Day (ICD-10-PCS; principal; 2019-04-17)
PROC: 5A1D70Z Performance of Urinary Filtration, Intermittent, Less than 6 Hours Per Day (ICD-10-PCS; 2019-04-18)
DX: N39.0 Urinary tract infection, site not specified (principal); N18.6 End stage renal disease; I48.20 Chronic atrial fibrillation, unspecified; I12.0 Hypertensive chronic kidney disease with stage 5 chronic kidney disease or end stage renal disease; E87.2 Acidosis; Z68.41 Body mass index [BMI] 40.0-44.9, adult; E11.22 Type 2 diabetes mellitus with diabetic chronic kidney disease; E78.00 Pure hypercholesterolemia, unspecified; M17.0 Bilateral primary osteoarthritis of knee; J43.9 Emphysema, unspecified; E66.01 Morbid (severe) obesity due to excess calories; E78.5 Hyperlipidemia, unspecified; Z85.3 Personal history of malignant neoplasm of breast; Z90.49 Acquired absence of other specified parts of digestive tract; Z90.13 Acquired absence of bilateral breasts and nipples; Z79.899 Other long term (current) drug therapy

== ENCOUNTER 2019-05-28 09:33 | Inpatient (IN) | payer MEDICARE, OTHER ==
[~2019-05-28] VITALS: Ht 175.3 cm; Wt 93.2 kg
--- NOTE | ~2019-05-28 | CON ---
[address] [address] CONSULTATION Name: PABLITO CHAVARRIA Room: [address] IN .R.#: [id number] Admission: 05/28/19 Attend Phys: Lukas Gardner MD Discharge: Date of : 48 Report #: [id number] THIS REPORT FOR: //name// CC: Lukas Garcia DATE OF SERVICE: 05/29/2019 NEPHROLOGY CONSULTATION CONSULTING PHYSICIAN: Lukas Gardner MD REASON FOR NEPHROLOGY CONSULTATION: End-stage renal disease, on maintenance hemodialysis. REASON FOR ADMISSION AND CHIEF COMPLAINT: Altered mental status and low blood sugar. HISTORY OF PRESENT ILLNESS: This is a 69-year-old female with past medical history of end-stage renal disease, on hemodialysis every Tuesday, Tuesday and Tuesday, was found unresponsive by her son. EMS was called and the blood sugar was in 50s, she does not follow with any trouble tracer. She got dialysis here in the hospital yesterday because it was a dialysis day. She is feeling better today. Her blood sugar also seems to have improved. ALLERGIES: No known allergies. REVIEW OF SYSTEMS: Today she is weak, otherwise 10-point review of systems done, negative. HOME MEDICATIONS: Which include she gets erythropoietin with dialysis. She is on ipratropium and albuterol nebulizer, clonidine, Nexium, Lantus, ferrous sulfate, apixaban, duloxetine, oxybutynin, sevelamer, calcium carbonate, multivitamin, nystatin powder, rosuvastatin, magnesium hydroxide as needed and anastrozole. PAST MEDICAL AND SURGICAL HISTORY: Which includes diabetes type 2, hypertension, dyslipidemia, right breast cancer with lumpectomy in 1992 with radiation treatments, x 2, fibromyalgia, cholecystectomy, abdominal hernia repair x 3 and arthritis primarily in her knees, bilateral mastectomy in 2013, gallbladder removed in 1975, tonsillectomy in 1992, end-stage renal disease, on hemodialysis every Tuesday, Tuesday and Tuesday, emphysema. FAMILY HISTORY: Noncontributory. SOCIAL HISTORY: Lives at home. Does not smoke or [place] [address] CONSULTATION Name: PABLITO CHAVARRIA Room: [address] IN [facility]#: [id number] Admission: 05/28/19 Attend Phys: Lukas Gardner MD Discharge: Date of : 48 Report #: [id number] drugs. PHYSICAL EXAMINATION: VITAL SIGNS: Blood pressure is 101/51, respiratory rate is 19, pulse rate is 96, temperature is 36.7 and pulse ox is 92%. She is on 2 liters of oxygen by nasal cannula. GENERAL: She is awake, alert and oriented x 3. HEAD AND EYES: Atraumatic, normocephalic. Normal conjunctivae. EARS, NOSE AND THROAT: Normal ears and nose. Mucous membranes are moist. NECK: No JVD. CHEST: Bilaterally clear to auscultation anteriorly. No crackles or wheezing. CARDIOVASCULAR: S1, S2 normal. No murmurs. ABDOMEN: Soft, nondistended, nontender, obese. LOWER EXTREMITIES: There is 2+ edema, looks like chronic looking edema, bilateral lower extremities. DIALYSIS ACCESS: She has a left IJ tunneled dialysis catheter, which is intact. NEUROLOGICAL FUNCTION: Gross neurological function is intact. PSYCHIATRIC: Mood and affect seem to be normal. LABORATORY DATA: WBC 9.4 and hemoglobin is 10.2. Sodium is 135 and potassium is 3.9. Other labs are reviewed. IMAGING: Chest x-ray was reviewed. ASSESSMENT: 1. End-stage renal disease, on hemodialysis every Tuesday, Tuesday and Tuesday. 2. Anemia of end-stage renal disease. 3. Hypoglycemia and history of diabetes, insulin-dependent. 4. Degenerative joint disease. 5. Emphysema. PLAN: 1. There is no acute need for dialysis today. She was dialyzed yesterday according to the scheduled and she stays here in-house tonight. She will be dialyzed tomorrow. Otherwise, it is okay to plan discharge from renal standpoint. 2. We will continue her erythropoietin for anemia needs. Thank you for this consultation. We will continue to follow for dialysis needs. By: 0821 [id number] Sims MD /geovanna
[~2019-05-28 09:33] MED LIST changes: +ATORVASTATIN CA80 MG PO; +CALCIUM CARBON500 MG PO; +LEVAQUIN 500 M500 M3 PO; +RENVELA0.8 GM
[2019-05-28 09:34] VITALS: BP 106/66
[2019-05-28 09:59] LABS: HEMATOCRIT 38.1 % (37.0-47.0); MCH 30.5 pg (26.0-34.0); MCHC 31.4 g/dL (28.0-37.0); MCV 97.1 fL (80.0-100.0); MPV 8.6 fl. (7.2-11.1); NUCLEATED RBCS 0 /100WBC; PLATELET COUNT* 162 thou/uL (150-400); RBC 3.92 mil/uL (4.20-5.00); RDW-CV 16.7 % (10.5-14.5); WBC 10.2 thou/uL (4.0-11.0)
[2019-05-28 10:03] LABS: CALCIUM 8.9 mg/dL (8.5-10.1); POTASSIUM 4.8 mmol/L (3.5-5.1)
[2019-05-28 10:05] LABS: APTT 27.5 Seconds (25.0-31.3); PROTIME 10.5 Seconds (9.20-11.50)
[2019-05-28 10:14] LABS: ALBUMIN 3.3 g/dL (3.4-5.0); TOTAL BILIRUBIN 0.4 mg/dL (<0.1-1.0); TOTAL PROTEIN 7.5 g/dL (6.4-8.2)
[2019-05-28 10:23] LABS: ABSOLUTE LYMPHOCYTES 0.5 thou/uL (0.8-5.3); ABSOLUTE MONOCYTES 0.7 thou/uL (0.0-1.2); ANISOCYTOSIS 1+; PLATELET ESTIMATE ADEQUATE; POIKILOCYTOSIS 1+
--- NOTE | 2019-05-28 11:41 | NUR ---
PER DR. GUIDO PT 1:1 CAN BE D/C
[2019-05-28] MEDS ORDERED: LANTUS SUBQ (12:23)
--- NOTE | 2019-05-28 12:25 | NUR ---
DR ANDREWS AT BS
[2019-05-28 13:53] VITALS: BP 116/63
[2019-05-28 14:18] VITALS: BP 116/63
--- NOTE | 2019-05-28 14:34 | EKG ---
[place] [address] ELECTROCARDIOGRAM REPORT Name: PABLITO CHAVARRIA Room: [address] ADM IN .R.#: [id number] Admission: 05/28/19 Attend Phys: Lukas Gardner MD Discharge: Date of : 48 Report #: [id number] THIS REPORT FOR: //name// [facility] ED Test Date: 2019-05-28 Test Time: 09:51:05 Pat Name: PABLITO CHAVARRIA Department: Room: [facility] Gender: F Sheet Rock Nailer: : 1950 Requested By: Ildefonso Rolle Order Number: [id number] MD: Arthur Gipson Measurements Intervals [place] Rate: 104 P: [place]: QRS: -23 QRSD: 120 T: 59 QT: 353 QTc: 465 Interpretive Statements Atrial fibrillation with rapid V-rate low voltage Nonspecific intraventricular conduction delay Anterior infarct, old Compared to ECG 04/16/2019 15:37:41 Intraventricular conduction delay now present Myocardial infarct finding still present Electronically Signed On 05-28-2019 14:33:37 CUSTOMER COMPLAINT CLERK by Arthur Gipson [email or web address] <ELECTRONICALLY SIGNED> By: Arthur Gipson MD, FAC 05/28/19 1433 0951 0951 Arthur Gipson MD, [facility] /EPI
--- NOTE | 2019-05-28 19:07 | NUR ---
ADMIT FROM ER TO FLOOR FROM HD PATIENT SETTLED IN BED ORIENTED TO RM, CALL LIGHT IN REACH PATIENT DENIED PAIN
[2019-05-28 20:00] VITALS: BP 121/72
[2019-05-29] VITALS: BP 100/51
[2019-05-29 02:06] LABS: GLYCOHEMOGLOBIN (HGB A1C) 6.3 % (4.8-5.6)
[2019-05-29 04:00] VITALS: BP 113/59
[2019-05-29 05:32] LABS: ABSOLUTE BASOPHILS 0.1 thou/uL (0.0-0.2); ABSOLUTE EOSINOPHILS 0.3 thou/uL (0.0-0.7); ABSOLUTE LYMPHOCYTES 0.4 thou/uL (0.8-5.3); ABSOLUTE MONOCYTES 0.6 thou/uL (0.0-1.2); ABSOLUTE NEUTROPHILS 8.1 thou/uL (1.6-8.1); BASOPHILS 0.7 %; EOSINOPHILS 2.7 %; HEMATOCRIT 31.4 % (37.0-47.0); HEMOGLOBIN 10.2 gm/dL (12.0-15.0); LYMPHOCYTES 4.2 %; MCH 31.2 pg (26.0-34.0); MCHC 32.5 g/dL (28.0-37.0); MCV 96.1 fL (80.0-100.0); MONOCYTES 6.2 %; MPV 8.7 fl. (7.2-11.1); NUCLEATED RBCS 0 /100WBC; PLATELET COUNT* 150 thou/uL (150-400); POLYS 86.2 %; RBC 3.27 mil/uL (4.20-5.00); RDW-CV 16.4 % (10.5-14.5); WBC 9.4 thou/uL (4.0-11.0)
[2019-05-29 05:40] LABS: CALCIUM 8.5 mg/dL (8.5-10.1); POTASSIUM 3.9 mmol/L (3.5-5.1)
[2019-05-29 07:30] VITALS: BP 101/51
--- NOTE | 2019-05-29 08:19 | NUR ---
ASSUMED PATIENT CARE AT 1900. ASSESSMENT COMPLETED CHARTED. PATIENT IS AFIB ON THE MONITOR. HOURLY ROUNDING IN PLACE FOR PATIENT SAFETY. CLWR.
--- NOTE | 2019-05-29 09:50 | NUR ---
ASSUMED PT CARE AT 0800, AOX4, UP WITH ASSIST, O2 SAT 90'S 2L NC. TRACING AFIB AT TELE. PT DENIES PAIN. PT EDEMA ON LOWER EXT NOTED. PT ACCU CHECK. IV ACCESS INTACT. LAST BM 05/28/19. VSS, MEDS GIVEN PER MAR, CALL LIGHT WITHIN REACH, WILL CONTINUE TO MONITOR.
[2019-05-29 11:46] VITALS: BP 91/46
[2019-05-29 15:30] VITALS: BP 109/52
--- NOTE | 2019-05-29 15:40 | NUR ---
Pt is A&O. Known to this CM from previous hospital stays. Pt states that nothing has changed since her last discharge. Pt continues to reside at home with son. Pt has a RW and wc for mobility. Pt is current at [facility] on a MWF schedule. Hx of [facility]. Hx of [facility]. Goal is home at dc, per Pt, possible dc to home tomorrow. Following
[2019-05-29 20:00] VITALS: BP 123/56
[2019-05-30] VITALS: BP 131/72
[2019-05-30 04:00] VITALS: BP 110/60
[2019-05-30 08:14] VITALS: BP 93/52
[2019-05-30 08:21] VITALS: BP 93/52
--- NOTE | 2019-05-30 09:03 | NUR ---
ASSUMED PATIENT CARE AT 1900. ASSESSMENT COMPLETED CHARTED. PATIENT IS AFIB ON THE MONITOR. HOURLY ROUNDING IN PLACE FOR PATIENT SAFETY. CLWR.
[2019-05-30 09:08] LABS: C-PEPTIDE 2.7 ng/mL (1.1-4.4); INSULIN 6.8 uIU/mL (2.6-24.9)
--- NOTE | 2019-05-30 11:08 | NUR ---
VSS, ASSUMED CARE IN THE AM, ASSESSMENT PERFORMED AND CHARTED, FALL PRECAUTIONS IN PLACE AND CALL LIGHT IN REACH, PT IS A&O4 AND UP WITH 1 TO BSC, PT IS TRACING AFIB ON THE MONITOR, PT DENIESW ANY PAIN, SHE HAS LEFT CHEST PORT DIALYSIS CATH, AT THIS TIME PT IS IN DIALYSIS, AND SHE HAD BEEM MADE MED-SURG.
--- NOTE | 2019-05-30 13:26 | NUR ---
PT TRANSFERRED TO ROOM 103 FROM DIALYSIS. VSS. REPORT RECEIVED FROM PREVIOUS RN. NO OTHER CONCERNS AT THIS TIME. CLWR. WCTM.
--- NOTE | 2019-05-30 14:06 | NUR ---
CM gave Pt and son Endocrinology clinic info yesterday
[2019-05-30 15:30] VITALS: BP 109/68
--- NOTE | 2019-05-30 16:16 | NUR ---
PT PROGRESSING TOWARDS GOALS THIS SHIFT. COMPLETED DIALYSIS WITH 1500ML REMOVED. BLOOD PRESSURE MEDS HELD TODAY D/T SOFT B/P. MONITORING BLOOD SUGARS. PT TOLERATING DIET. NO OTHER CONCERNS AT THIS TIME. CLWR. WCTM.
[2019-05-30 21:06] VITALS: BP 97/50
[2019-05-31 03:09] VITALS: BP 109/55
--- NOTE | 2019-05-31 05:16 | NUR ---
VERY RESTLESS SHOWS SOME CONFUSTION THROUGH SHIFT. DID NOT SLEEP. SHE IS NOT VERY COOPERATIVE WHEN BEING OR NEEDING MOVED. HER BRIEFS WERE CHANGED EVERY FEW HOURS AND BED KEPT CLEAN AND DRY. SHE WAS ABLE TO SIT ON THE EDGE OF THE BED ON HER OWN BUT REQUESTED TO BE BOOSTED UP OFTEN. SHE MAY HAVE SOME ANXIETY. PLAN IS FOR ENDOCRINE STUDY. KEPT ON O2 ALL SHIFT, NO REPORTS OF WORSENING OF CONDITION. PATIENT WAS ABLE TO HAVE A FEW SNACKS TO KEEP BLOOD SUGAR BALANCED. WILL CONTINUE TO FOLLOW PLAN OF CARE.
[2019-05-31 07:40] VITALS: BP 92/50
[2019-05-31 09:10] LABS: HEPATITIS B SURFACE AG Negative (Negative)
[2019-05-31 14:38] VITALS: BP 109/55
--- NOTE | 2019-05-31 15:02 | NUR ---
PT.HAS DISCHARGE ORDERS FOR TODAY. SPOKE WITH PT. SHE IS GLAD TO GET TO GO HOME. SHE SAID SHE IS CURRENT WITH [facility] . CALLED [facility] AND FAXED REFERRAL AND ORDERS TO [facility]/[phone]. TOY SPOKE WITH SON,SALLY PER PTS REQUEST,ON PHONE. HE SAID THEY ALWAYS SEND HIS MOM HOME BY AMBULANCE. SHE DOES NOT HAVE HER WC AT THE HOSPITAL AND IS IS VERY DIFFICULT FOR HER TO TRANSFER. TOY FAXED AMBULANCE FORM TO [facility] [phone]. RN TO CALL FOR AMBULANCE WHEN READY. TOY NOTIFIED DIALYSIS SHE WILL BE RESUMING OUTPT.TOMORROW.
[2019-05-31 16:30] VITALS: BP 109/55
== END 2019-05-31 16:30 | disposition home or self-care (01) | DRG 637 ==
LOC: M.ERS 09:33 → M.TBA-ER 12:05 → M.2W 12:05 → M.ORTHSURG 05-30 13:09
PROVIDERS: Family Medicine; Internal Medicine; ADMIT Internal Medicine
PROC: 5A1D70Z Performance of Urinary Filtration, Intermittent, Less than 6 Hours Per Day (ICD-10-PCS; principal; 2019-05-28)
PROC: 5A1D70Z Performance of Urinary Filtration, Intermittent, Less than 6 Hours Per Day (ICD-10-PCS; 2019-05-30)
DX: E11.649 Type 2 diabetes mellitus with hypoglycemia without coma (principal); G93.41 Metabolic encephalopathy; I12.0 Hypertensive chronic kidney disease with stage 5 chronic kidney disease or end stage renal disease; N18.6 End stage renal disease; E78.5 Hyperlipidemia, unspecified; M79.7 Fibromyalgia; M17.10 Unilateral primary osteoarthritis, unspecified knee; D63.1 Anemia in chronic kidney disease; M19.90 Unspecified osteoarthritis, unspecified site; J44.9 Chronic obstructive pulmonary disease, unspecified; Z79.4 Long term (current) use of insulin; Z90.13 Acquired absence of bilateral breasts and nipples; Z99.2 Dependence on renal dialysis; Z90.49 Acquired absence of other specified parts of digestive tract; Z79.2 Long term (current) use of antibiotics; Z79.899 Other long term (current) drug therapy; Z90.89 Acquired absence of other organs; Z23 Encounter for immunization

== ENCOUNTER 2019-10-24 13:52 | Inpatient (IN) | payer MEDICARE ==
[~2019-10-24] VITALS: Ht 152.4 cm; Wt 146.7 kg
[~2019-10-24 13:52] MED LIST changes: +LANTUS SUBQ
[2019-10-24 13:54] VITALS: BP 115/59
[2019-10-24 14:58] LABS: ABSOLUTE EOSINOPHILS 0.4 thou/uL (0.0-0.7); ABSOLUTE LYMPHOCYTES 0.4 thou/uL (0.8-5.3); ABSOLUTE MONOCYTES 0.9 thou/uL (0.0-1.2); ABSOLUTE NEUTROPHILS 7.9 thou/uL (1.6-8.1); BASOPHILS 0.5 %; EOSINOPHILS 3.7 %; HEMATOCRIT 31.5 % (37.0-47.0); HEMOGLOBIN 10.1 gm/dL (12.0-15.0); LYMPHOCYTES 3.9 %; MCH 30.9 pg (26.0-34.0); MCV 96.5 fL (80.0-100.0); NUCLEATED RBCS 0 /100WBC; PLATELET COUNT* 244 thou/uL (150-400); POLYS 82.9 %; RBC 3.27 mil/uL (4.20-5.00); RDW-CV 16.1 % (10.5-14.5); WBC 9.5 thou/uL (4.0-11.0)
[2019-10-24] MEDS ORDERED: TRESIBA FL200 UNIT/1 SUBQ (15:03)
[2019-10-24 15:06] LABS: APTT 34.8 Seconds (25.0-31.3); INR 1.2; PROTIME 12.4 Seconds (9.20-11.50)
[2019-10-24 15:09] LABS: CALCIUM 8.3 mg/dL (8.5-10.1); CREATININE 6.3 mg/dL (0.6-1.3); POTASSIUM 4.1 mmol/L (3.5-5.1)
[2019-10-24 15:13] LABS: ALBUMIN 2.1 g/dL (3.4-5.0); TOTAL BILIRUBIN 0.4 mg/dL (<0.1-1.0); TOTAL PROTEIN 7.1 g/dL (6.4-8.2)
[2019-10-24] MEDS ORDERED: DORYX MPC120 MG PO (15:15)
[2019-10-24 15:50] VITALS: BP 105/55
[2019-10-24 16:15] VITALS: BP 140/45
[2019-10-24 16:32] VITALS: BP 105/55
--- NOTE | 2019-10-24 16:39 | EKG ---
[place] [address] ELECTROCARDIOGRAM REPORT Name: PABLITO CHAVARRIA Room: [address] ADM IN .R.#: [id number] Admission: 10/24/19 Attend Phys: Tad Bernard Discharge: Date of : 48 Date of Service: 10/24/19 1443 Report #: [id number] THIS REPORT FOR: //name// [facility] ED Test Date: 2019-10-24 Test Time: 14:43:18 Pat Name: PABLITO CHAVARRIA Department: Room: [facility] Gender: F Wrapper Rewinder: DANTE : 1950 Requested By: Rhona Whitfield Order Number: [id number] MD: Curry Peralta Measurements Intervals [place] Rate: 95 P: [place]: QRS: -61 QRSD: 110 T: 82 QT: 385 QTc: 484 Interpretive Statements Atrial fibrillation Inferior infarct, old Anterior infarct, old Lateral leads are also involved Baseline wander in lead(s) I,II,aVR,aVL,V1 Compared to ECG 05/28/2019 09:51:05 Ventricular premature complex(es) now present Intraventricular conduction delay no longer present Myocardial infarct finding still present Electronically Signed On 10-24-2019 16:37:58 CDT by Curry Peralta [email or web address] <ELECTRONICALLY SIGNED> By: Curry Peralta MD, [facility] 10/24/19 1637 1443 1443 Curry Peralta MD, [facility] /EPI
[2019-10-24 20:15] VITALS: BP 105/59
[2019-10-25 00:08] VITALS: BP 116/57
[2019-10-25 04:00] VITALS: BP 113/54
[2019-10-25 08:00] VITALS: BP 89/53
--- NOTE | 2019-10-25 14:46 | CON ---
[address] [address] CONSULTATION Name: PABLITO CHAVARRIA Room: [address] IN M.R.#: [id number] Admission: 10/24/19 Attend Phys: Tad Dominguez, Discharge: Date of : 48 Report #: [id number] THIS REPORT FOR: //name// cc: Dave Garcia MD, Simon J. MD ~ THIS REPORT FOR: //name// CC: Dave Dominguez DATE OF SERVICE: 10/25/2019 INFECTIOUS DISEASE CONSULTATION ATTENDING PHYSICIAN: Tad Dominguez MD REASON FOR EVALUATION: Bilateral lower extremity inflammatory eruption, right greater than left, has a new onset denuded bullous lesion suggestive of skin and soft tissue infection with cellulitis in the setting of venous stasis dermatitis. HISTORY OF PRESENT ILLNESS: Chart reviewed, the patient examined. A 69-year-old woman had diabetes mellitus type 2 with end-stage renal disease, on hemodialysis, who intermittently has lower extremity edema. She noted increasing discomfort. She describes it as aching pain associated with the right lower extremity several days ago. This was subsequently followed by development of a bullous lesion of the mid to proximal aspect of the anterior pretibial site and was roughed and denuded. It was described as having purulence. As part of this drainage, she was hospitalized. She was placed on combination therapy with ceftriaxone and doxycycline. It is not clear to her if she had any fevers. She has been feeling weak, diminished appetite. Denies significant pulmonary-related complaints. Evaluation noted normal lactic acid. Blood cultures are sterile thus far. White count was in the normal range. She is somewhat lethargic. She has been afebrile to this point. Mildly encephalopathic. ALLERGIES: None. MEDICATIONS: Include anastrozole, multivitamin, sevelamer, ceftriaxone, insulin, duloxetine, hydrocodone as needed, oxybutynin, carvedilol, atorvastatin, apixaban, doxycycline, clonidine. PAST MEDICAL HISTORY: As described above, diabetes mellitus type 2 complicated by end-stage renal disease with requirement of hemodialysis; hypertension, high cholesterol, previous history of right breast cancer with lumpectomy greater than 25 years ago, fibromyalgia, arthritis and [place] [address] CONSULTATION Name: PABLITO CHAVARRIA Room: [address]#: [id number] Admission: 10/24/19 Attend Phys: Tad Dominguez, Discharge: Date of : 48 Report #: [id number] chronic obstructive lung disease. SOCIAL HISTORY: Nonsmoker, no ethanol, no illicit drug use. FAMILY HISTORY: Noncontributory. REVIEW OF SYSTEMS: Otherwise, unremarkable 10-point review of systems. PHYSICAL EXAMINATION: GENERAL: She appears chronically ill, undernourished. She is obese. Again, she is lethargic, mildly encephalopathic. VITAL SIGNS: Temperature 97.7, pulse 95, respirations 16, blood pressure 89/53. SKIN: Warm and quite dry, especially the distal lower extremities. There are some moderate degree of inflammation, is not overtly tender to touch. She has got dressing over the site described as anterior mid to proximal aspect slightly lateral. There is a superficial ulceration at site of denuded bullous lesion. There is no particular odor, no purulence at this point. HEENT: Normocephalic. Extraocular muscles intact. NECK: Supple. LUNGS: Diminished breath sounds. Few scattered crackles at the bases. HEART: Irregular. I do not appreciate any murmur. ABDOMEN: Obese, soft, nontender. Lower extremities as described above. GENITOURINARY: Deferred. RECTAL: Deferred. LABORATORY DATA: Blood cultures sterile thus far. Prealbumin 13.0, lactic acid 2.7. Troponin less than 0.06. Electrolytes: Sodium 138, potassium 4.1, chloride 97, bicarbonate is 31, anion gap of 10, BUN and creatinine 60 and 6.3, glucose of 90. LFTs unremarkable. Albumin of 2.1, total protein is 7.1. Estimated GFR of 7. PT of 12.4, INR of 1.2. CBC: White count of 9.5, H and H 10.1 and 31.5, platelets of 244. She has got a lymphocytopenia of 400. ASSESSMENT AND PLAN: Bilateral lower extremity inflammatory eruption, likely multifactorial. I think there is a component on the right of skin and soft tissue infection with cellulitis. She noted they attempted a compression without ability for her to tolerate. At this point, we will continue elevation and treat empirically. She is not overtly toxic at this point. We will await cultures. Continue wound care as prescribed. <ELECTRONICALLY SIGNED> By: Mehran Roa MD 10/25/19 1446 1357 1417Jowayne Roa MD /nt
[2019-10-25 17:30] VITALS: BP 102/60
[2019-10-25 19:50] VITALS: BP 95/51
[2019-10-25 23:38] VITALS: BP 105/58
[2019-10-26 04:00] VITALS: BP 107/48
[2019-10-26 04:47] LABS: HEMATOCRIT 29.8 % (37.0-47.0); HEMOGLOBIN 9.5 gm/dL (12.0-15.0); MCH 30.7 pg (26.0-34.0); MCHC 31.8 g/dL (28.0-37.0); MCV 96.6 fL (80.0-100.0); MPV 7.9 fl. (7.2-11.1); RBC 3.08 mil/uL (4.20-5.00); RDW-CV 16.6 % (10.5-14.5); WBC 8.2 thou/uL (4.0-11.0)
[2019-10-26 05:02] LABS: CALCIUM 8.7 mg/dL (8.5-10.1); PHOSPHORUS* 6.5 mg/dL (2.5-4.9); POTASSIUM 4.4 mmol/L (3.5-5.1)
[2019-10-26 05:05] LABS: CREATININE 5.1 mg/dL (0.6-1.3)
[2019-10-26 07:39] VITALS: BP 97/58
[2019-10-26 12:19] VITALS: BP 103/54
[2019-10-26 16:11] VITALS: BP 104/50
[2019-10-26 19:50] VITALS: BP 98/53
[2019-10-27 00:14] VITALS: BP 91/47
[2019-10-27 04:17] VITALS: BP 105/57
[2019-10-27 05:16] LABS: HEMATOCRIT 28.9 % (37.0-47.0); HEMOGLOBIN 9.2 gm/dL (12.0-15.0); MCH 30.8 pg (26.0-34.0); MCHC 31.9 g/dL (28.0-37.0); MCV 96.7 fL (80.0-100.0); MPV 7.8 fl. (7.2-11.1); RBC 2.98 mil/uL (4.20-5.00); RDW-CV 16.3 % (10.5-14.5); WBC 8.6 thou/uL (4.0-11.0)
[2019-10-27 05:32] LABS: ALBUMIN 1.9 g/dL (3.4-5.0); CALCIUM 8.4 mg/dL (8.5-10.1); MAGNESIUM 1.7 mg/dL (1.8-2.4); PHOSPHORUS* 4.5 mg/dL (2.5-4.9)
[2019-10-27 08:05] VITALS: BP 112/54
[2019-10-27 13:12] VITALS: BP 129/63
[2019-10-27 16:43] VITALS: BP 128/66
[2019-10-27 19:40] VITALS: BP 95/59
[2019-10-28 00:33] VITALS: BP 93/50
[2019-10-28 04:31] LABS: CALCIUM 8.8 mg/dL (8.5-10.1); POTASSIUM 4.9 mmol/L (3.5-5.1)
[2019-10-28 04:36] VITALS: BP 116/62
[2019-10-28 04:37] LABS: CREATININE 5.3 mg/dL (0.6-1.3)
[2019-10-28 07:42] VITALS: BP 104/62
[2019-10-28 12:14] VITALS: BP 100/50
[2019-10-28 17:13] VITALS: BP 123/62
[2019-10-28 20:00] VITALS: BP 145/82
[2019-10-29] VITALS: BP 103/73
[2019-10-29 04:00] VITALS: BP 108/54
[2019-10-29 08:00] VITALS: BP 111/52
[2019-10-29 12:29] VITALS: BP 91/52
[2019-10-29 16:15] VITALS: BP 96/57
[2019-10-29 19:55] VITALS: BP 137/68
[2019-10-30] VITALS: BP 95/76
[2019-10-30 04:00] VITALS: BP 106/60
[2019-10-30 05:13] LABS: HEMATOCRIT 29.8 % (37.0-47.0); HEMOGLOBIN 9.4 gm/dL (12.0-15.0); MCH 30.4 pg (26.0-34.0); MCHC 31.7 g/dL (28.0-37.0); MCV 95.9 fL (80.0-100.0); MPV 7.8 fl. (7.2-11.1); RBC 3.1 mil/uL (4.20-5.00); RDW-CV 15.9 % (10.5-14.5); WBC 7.4 thou/uL (4.0-11.0)
[2019-10-30 05:29] LABS: ALBUMIN 2.1 g/dL (3.4-5.0); CALCIUM 8.5 mg/dL (8.5-10.1); CREATININE 4.6 mg/dL (0.6-1.3); PHOSPHORUS* 5.7 mg/dL (2.5-4.9); POTASSIUM 4.3 mmol/L (3.5-5.1)
[2019-10-30 07:32] VITALS: BP 113/55
[2019-10-30] MEDS ORDERED: LINEZOLID600 MG PO (11:16)
[2019-10-30 11:18] VITALS: BP 113/55
[2019-10-30 11:21] VITALS: BP 113/55
--- NOTE | 2019-10-30 11:35 | CON ---
[address] [address] CONSULTATION Name: PABLITO CHAVARRIA Room: [address] IN .R.#: [id number] Admission: 10/24/19 Attend Phys: Tad Dominguez, Discharge: Date of : 48 Report #: [id number] THIS REPORT FOR: //name// cc: Dave Garcia MD, Simon J. MD ~ THIS REPORT FOR: //name// CC: Dave Dominguez DATE OF SERVICE: 10/25/2019 REQUESTING PHYSICIAN: Tad Dominguez MD REASON FOR CONSULTATION: Assistance providing dialysis. HISTORY OF PRESENT ILLNESS: The patient is a 69-year-old female with medical history significant for end-stage renal disease, morbid obesity, chronic lower extremity edema and chronic wound of her legs. Her wounds are not getting better and her brought her to the Emergency Room and she got admitted for the treatment of her leg wounds. PAST MEDICAL HISTORY: 1. End-stage renal disease, on chronic dialysis on Tuesday, Tuesday, and Tuesday schedule. 2. Morbid obesity. 3. Lymphedema. 4. Nonhealing wound of the lower extremities. 5. Chronic atrial fibrillation. FAMILY HISTORY: Noncontributory. SOCIAL HISTORY: No tobacco, no alcohol abuse. REVIEW OF SYSTEMS: Positive for being very weak, no energy, no appetite, chronic lower extremity edema and some chronic leg pain. PHYSICAL EXAMINATION: GENERAL: Awake, alert. VITAL SIGNS: Reviewed. HEENT: Pupils are round. NECK: Fatty. LUNGS: Decreased air movements. CARDIOVASCULAR: Irregular rate. ABDOMEN: Obese, [place] [address] CONSULTATION Name: PABLITO CHAVARRIA Room: [address] IN [facility].#: [id number] Admission: 10/24/19 Attend Phys: Tad Dominguez, Discharge: Date of : 48 Report #: [id number] EXTREMITIES: Lower extremities, bilateral 4+ edema and some wounds, which are nonhealing. ASSESSMENT: 1. End-stage renal disease. 2. Nonhealing leg wounds. 3. Morbid obesity. 4. Hypotension, on admission. 5. Deconditioning. 6. Chronic atrial fibrillation. PLAN: She was dialyzed today and she will be dialyzed again tomorrow. Tomorrow is her dialysis day. The wound care will be provided by solution specialist. Thank you very much. <ELECTRONICALLY SIGNED> By: Ruperto Serrano MD 10/30/19 1135 1405 2246Abenedict Serrano MD /KRISTEL
== END 2019-10-30 13:45 | disposition home health service (06) | DRG 871 ==
LOC: M.ERS 13:52 → M.TBA-ER 15:26 → M.2W 15:26
PROVIDERS: Family Medicine; Internal Medicine; Nurse Practitioner Family; ADMIT Family Medicine
PROC: 5A1D70Z Performance of Urinary Filtration, Intermittent, Less than 6 Hours Per Day (ICD-10-PCS; principal; 2019-10-25)
PROC: 5A1D70Z Performance of Urinary Filtration, Intermittent, Less than 6 Hours Per Day (ICD-10-PCS; 2019-10-26)
PROC: 5A1D70Z Performance of Urinary Filtration, Intermittent, Less than 6 Hours Per Day (ICD-10-PCS; 2019-10-29)
DX: A41.02 Sepsis due to Methicillin resistant Staphylococcus aureus (principal); N18.6 End stage renal disease; E43 Unspecified severe protein-calorie malnutrition; L03.115 Cellulitis of right lower limb; Z68.44 Body mass index [BMI] 60.0-69.9, adult; I48.20 Chronic atrial fibrillation, unspecified; I12.0 Hypertensive chronic kidney disease with stage 5 chronic kidney disease or end stage renal disease; D68.69 Other thrombophilia; E78.00 Pure hypercholesterolemia, unspecified; M79.7 Fibromyalgia; E11.22 Type 2 diabetes mellitus with diabetic chronic kidney disease; J43.9 Emphysema, unspecified; I87.2 Venous insufficiency (chronic) (peripheral); E66.01 Morbid (severe) obesity due to excess calories; I95.9 Hypotension, unspecified; F03.90 Unspecified dementia, unspecified severity, without behavioral disturbance, psychotic disturbance, mood disturbance, and anxiety; I89.0 Lymphedema, not elsewhere classified; Z85.3 Personal history of malignant neoplasm of breast; Z99.2 Dependence on renal dialysis; Z92.3 Personal history of irradiation; Z98.891 History of uterine scar from previous surgery; Z90.13 Acquired absence of bilateral breasts and nipples; Z90.49 Acquired absence of other specified parts of digestive tract; Z79.01 Long term (current) use of anticoagulants; Z79.4 Long term (current) use of insulin; Z79.899 Other long term (current) drug therapy

== ENCOUNTER 2019-11-30 13:11 | Inpatient (IN) | payer MEDICARE ==
[~2019-11-30] VITALS: Ht 177.8 cm; Wt 122.5 kg
[~2019-11-30 13:11] MED LIST changes: +DORYX MPC120 MG PO; +LINEZOLID600 MG PO; +TRESIBA FL200 UNIT/1 SUBQ
[2019-11-30 13:14] VITALS: BP 133/60
[2019-11-30 13:48] LABS: ABSOLUTE EOSINOPHILS 0.1 thou/uL (0.0-0.7); ABSOLUTE LYMPHOCYTES 0.4 thou/uL (0.8-5.3); ABSOLUTE MONOCYTES 0.8 thou/uL (0.0-1.2); ABSOLUTE NEUTROPHILS 6.4 thou/uL (1.6-8.1); BASOPHILS 0.4 %; EOSINOPHILS 1.1 %; HEMATOCRIT 35.2 % (37.0-47.0); MCH 30.2 pg (26.0-34.0); MCHC 31.3 g/dL (28.0-37.0); MCV 96.4 fL (80.0-100.0); MONOCYTES 10.9 %; MPV 7.9 fl. (7.2-11.1); NUCLEATED RBCS 0 /100WBC; PLATELET COUNT* 223 thou/uL (150-400); POLYS 82.6 %; RBC 3.65 mil/uL (4.20-5.00); RDW-CV 18.3 % (10.5-14.5); WBC 7.7 thou/uL (4.0-11.0)
[2019-11-30 14:00] LABS: APTT 26.2 Seconds (25.0-31.3); INR 1.2
[2019-11-30 14:13] LABS: CALCIUM 8.1 mg/dL (8.5-10.1); CREATININE 5.6 mg/dL (0.6-1.3); POTASSIUM 4.5 mmol/L (3.5-5.1)
[2019-11-30 14:22] LABS: ALBUMIN 2.9 g/dL (3.4-5.0); TOTAL BILIRUBIN 0.5 mg/dL (<0.1-1.0); TOTAL PROTEIN 7.7 g/dL (6.4-8.2)
[2019-11-30 19:40] LABS: BE -8.7 mmol/L (-2 to +3); PO2 82.2 mmHg (75.0-100.0)
[2019-11-30 19:44] LABS: PCO2 85.9 mmHg (35.0-45.0); pH 7.048 (7.340-7.450)
[2019-11-30 21:59] LABS: BE -3.7 mmol/L (-2 to +3)
[2019-11-30 22:01] LABS: PCO2 112.4 mmHg (35.0-45.0); pH 7.036 (7.340-7.450)
[2019-12-01] VITALS (71 sets, daily range): BP systolic 66–129; BP diastolic 38–80
[2019-12-01 01:57] LABS: pH 7.197 (7.340-7.450)
[2019-12-01 01:58] LABS: BE -1.9 mmol/L (-2 to +3); PCO2 72.6 mmHg (35.0-45.0); PO2 55.3 mmHg (75.0-100.0)
[2019-12-01 05:54] LABS: pH 7.321 (7.340-7.450)
[2019-12-01 05:55] LABS: BE 2.4 mmol/L (-2 to +3)
[2019-12-01 05:58] LABS: PCO2 58.5 mmHg (35.0-45.0)
[2019-12-01 11:06] LABS: HEMATOCRIT 31.7 % (37.0-47.0); HEMOGLOBIN 10.2 gm/dL (12.0-15.0); MCH 30.9 pg (26.0-34.0); MCHC 32.2 g/dL (28.0-37.0); MCV 95.7 fL (80.0-100.0); RBC 3.31 mil/uL (4.20-5.00); RDW-CV 18.1 % (10.5-14.5); WBC 7.6 thou/uL (4.0-11.0)
[2019-12-01 11:15] LABS: CALCIUM 8.2 mg/dL (8.5-10.1); CREATININE 4.8 mg/dL (0.6-1.3); POTASSIUM 4.2 mmol/L (3.5-5.1)
--- NOTE | 2019-12-01 12:56 | EKG ---
[place] [address] ELECTROCARDIOGRAM REPORT Name: PABLITO CHAVARRIA Room: [address] ADM IN .R.#: [id number] Admission: 11/30/19 Attend Phys: Gabriella Harris, Discharge: Date of : 48 Date of Service: 11/30/191945 Report #: [id number] THIS REPORT FOR: //name// [facility] ED Test Date: 2019-11-30 Test Time: 19:46:38 Pat Name: PABLITO CHAVARRIA Department: Room: [facility] Gender: F Ela Teacher: JESSICA : 1950 Requested By: Ildefonso Rolle Order Number: [id number] MD: Arthur Gipson Measurements Intervals [place] Rate: 124 P: MS: QRS: -51 QRSD: 94 T: 101 QT: 306 QTc: 440 Interpretive Statements Atrial fibrillation low voltage Abnormal lateral Q waves Anterior infarct, old Compared to ECG 10/24/2019 14:43:18 Myocardial infarct finding still present Electronically Signed On 12-01-2019 12:55:44 CDT by Arthur Gipson [email or web address] <ELECTRONICALLY SIGNED> By: Arthur Gipson MD, [facility] 12/01/19 1255 194 45 Arthur Gipson MD, [facility] /EPI
[2019-12-02] VITALS (51 sets, daily range): BP systolic 84–135; BP diastolic 53–93
[2019-12-02 03:34] LABS: HEMATOCRIT 27.9 % (37.0-47.0); HEMOGLOBIN 8.9 gm/dL (12.0-15.0); MCV 93.9 fL (80.0-100.0); MPV 7.7 fl. (7.2-11.1); RBC 2.97 mil/uL (4.20-5.00); WBC 6.3 thou/uL (4.0-11.0)
[2019-12-02 03:46] LABS: ALBUMIN 2.4 g/dL (3.4-5.0); CREATININE 5.7 mg/dL (0.6-1.3); MAGNESIUM 1.9 mg/dL (1.8-2.4); POTASSIUM 4.3 mmol/L (3.5-5.1); TOTAL BILIRUBIN 0.5 mg/dL (<0.1-1.0)
[2019-12-02 05:08] LABS: BE 0 mmol/L (-2 to +3); pH 7.378 (7.340-7.450)
[2019-12-02 05:10] LABS: PO2 149.7 mmHg (75.0-100.0)
--- NOTE | 2019-12-02 12:29 | CON ---
[address] [address] CONSULTATION Name: AURAPABLITO Mele Room: [address] IN M.R.#: [id number] Admission: 11/30/19 Attend Phys: Gabriella Harris MD Discharge: Date of : 48 Report #: [id number] THIS REPORT FOR: //name// cc: CORONA Tracey family physician/PCP CORONA Tracey family physician/PCP ~ THIS REPORT FOR: //name// CC: CORONA physician/PCP Gabriella Harris DATE OF SERVICE: 12/01/2019 REQUESTING PHYSICIAN: Dr. Harris. REASON FOR CONSULTATION: End-stage renal disease. The patient with respiratory failure. HISTORY OF PRESENT ILLNESS: The patient is a 69-year-old female known to us as we follow her for her dialysis needs. She presents with complaints of shortness of breath to be intubated in ICU. She had emergent dialysis this night, 3 liters of fluids removed, but after dialysis she did not get any better, now she is in Intensive Care Unit, intubated. Her chest x-ray actually looks worse than the right side, Pulmonology assessment is developing pneumonia; however, COVID test was not tested. I am going to base my examination on the reports from the case hardener because I do have my suspicion for COVID-19 positivity in this case. PAST MEDICAL HISTORY: 1. End-stage renal disease. 2. COPD. 3. Morbid obesity. 4. Chronic atrial fibrillation. 5. Diabetes mellitus type 2. 6. History of hypertension. FAMILY HISTORY: Noncontributory. SOCIAL HISTORY: No tobacco or alcohol abuse. REVIEW OF SYSTEMS: Unable to obtain. From the entrance to the room, I did not touch the patient because I again have my suspicion for COVID-19. PHYSICAL EXAMINATION: GENERAL: The patient is in intensive care unit, intubated. [place] [address] CONSULTATION Name: AURAPABLITO Mele Room: [address]#: [id number] Admission: 11/30/19 Attend Phys: Gabriella Harris MD Discharge: Date of : 48 Report #: [id number] pressors, receiving antibiotics. LUNGS: Based on the Pulmonology exam again lungs are with some crackles. CARDIOVASCULAR: No rub. ABDOMEN: Obese. EXTREMITIES: Lower extremities with some edema. ASSESSMENT: 1. End-stage renal disease. 2. Pneumonia. 3. Diabetes mellitus type 2. 4. Respiratory failure. 5. Obesity. 6. Hypertension. PLAN: Dialysis was done today. We will check for possible dialysis tomorrow. Follow her labs. I would recommend COVID-19. <ELECTRONICALLY SIGNED> By: Ruperto Serrano MD 12/02/19 1229 1145 1222Alexandr MD petra Bourne
[2019-12-03] VITALS (65 sets, daily range): BP systolic 90–146; BP diastolic 46–95
[2019-12-03 03:55] LABS: HEMATOCRIT 30.2 % (37.0-47.0); HEMOGLOBIN 9.6 gm/dL (12.0-15.0); MCHC 31.7 g/dL (28.0-37.0); MCV 94.5 fL (80.0-100.0); MPV 7.7 fl. (7.2-11.1); RBC 3.19 mil/uL (4.20-5.00); RDW-CV 17.8 % (10.5-14.5); WBC 5.5 thou/uL (4.0-11.0)
[2019-12-03 04:01] LABS: INR 1.2; PROTIME 11.9 Seconds (9.20-11.50)
[2019-12-03 04:08] LABS: ALBUMIN 2.6 g/dL (3.4-5.0); CREATININE 4.5 mg/dL (0.6-1.3); POTASSIUM 4.8 mmol/L (3.5-5.1); TOTAL BILIRUBIN 0.5 mg/dL (<0.1-1.0); TOTAL PROTEIN 6.6 g/dL (6.4-8.2)
[2019-12-03 04:44] LABS: BE 2.8 mmol/L (-2 to +3); PCO2 47.4 mmHg (35.0-45.0); pH 7.393 (7.340-7.450)
[2019-12-03 04:47] LABS: PO2 51.5 mmHg (75.0-100.0)
[2019-12-03 15:08] LABS: HEPATITIS B SURFACE AG Negative (Negative)
--- NOTE | 2019-12-03 15:32 | EKG ---
[place] [address] ELECTROCARDIOGRAM REPORT Name: PABLITO CHAVARRIA Room: [address] ADM IN .R.#: [id number] Admission: 11/30/19 Attend Phys: Gabriella Harris, Discharge: Date of : 48 Date of Service: 11/30/19 1321 Report #: [id number] THIS REPORT FOR: //name// [facility] ED Test Date: 2019-11-30 Test Time: 13:21:15 Pat Name: PABLITO CHAVARRIA Department: Room: [address] Gender: F Microscopist: : 1950 Requested By: Ildefonso Rolle Order Number: [id number] Reading MD: Mehdi Doherty Measurements Intervals [place] Rate: 131 P: FL: QRS: 268 QRSD: 97 T: 87 QT: 334 QTc: 494 Interpretive Statements Atrial fibrillation Inferior infarct, old Consider anterior infarct Lateral leads are also involved Compared to ECG 10/24/2019 14:43:18 Heart rate has increased Myocardial infarct finding still present Electronically Signed On 12-03-2019 15:31:36 CDT by Mehdi Doherty [email or web address] <ELECTRONICALLY SIGNED> By: Mehdi Doherty MD, [facility] 12/03/19 1531 1321 1321 Mehdi Doherty MD, [facility] /EPI
[2019-12-04] VITALS (27 sets, daily range): BP systolic 112–151; BP diastolic 69–95
[2019-12-04 03:56] LABS: HEMATOCRIT 32.6 % (37.0-47.0); HEMOGLOBIN 10.3 gm/dL (12.0-15.0); MCH 29.9 pg (26.0-34.0); MCHC 31.7 g/dL (28.0-37.0); MCV 94.3 fL (80.0-100.0); RBC 3.46 mil/uL (4.20-5.00); RDW-CV 17.8 % (10.5-14.5)
[2019-12-04 04:07] LABS: HEMATOCRIT 33.2 % (37.0-47.0); HEMOGLOBIN 10.4 gm/dL (12.0-15.0); MCH 29.8 pg (26.0-34.0); MCHC 31.4 g/dL (28.0-37.0); NUCLEATED RBCS 0 /100WBC; PLATELET COUNT* 177 thou/uL (150-400); RDW-CV 17.8 % (10.5-14.5); WBC 4.9 thou/uL (4.0-11.0)
[2019-12-04 04:09] LABS: ALBUMIN 2.8 g/dL (3.4-5.0); CALCIUM 8.7 mg/dL (8.5-10.1); CREATININE 3.9 mg/dL (0.6-1.3); MAGNESIUM 2.1 mg/dL (1.8-2.4); POTASSIUM 4.4 mmol/L (3.5-5.1); TOTAL BILIRUBIN 0.6 mg/dL (<0.1-1.0); TOTAL PROTEIN 6.9 g/dL (6.4-8.2)
[2019-12-04 06:10] LABS: ABSOLUTE LYMPHOCYTES 0.3 thou/uL (0.8-5.3); ABSOLUTE MONOCYTES 0.4 thou/uL (0.0-1.2); ABSOLUTE NEUTROPHILS 4.2 thou/uL (1.6-8.1); PLATELET ESTIMATE ADEQUATE
[2019-12-04 06:11] LABS: ANISOCYTOSIS 1+; HYPOCHROMASIA 1+; POIKILOCYTOSIS 1+
[2019-12-05] VITALS (27 sets, daily range): BP systolic 89–129; BP diastolic 56–86
[2019-12-05 03:27] LABS: HEMATOCRIT 35.2 % (37.0-47.0); HEMOGLOBIN 11.2 gm/dL (12.0-15.0); MCH 29.9 pg (26.0-34.0); MCHC 31.7 g/dL (28.0-37.0); MCV 94.4 fL (80.0-100.0); MPV 8.4 fl. (7.2-11.1); RBC 3.73 mil/uL (4.20-5.00); RDW-CV 17.3 % (10.5-14.5); WBC 7.2 thou/uL (4.0-11.0)
[2019-12-05 04:24] LABS: ALBUMIN 2.7 g/dL (3.4-5.0); CALCIUM 8.3 mg/dL (8.5-10.1); MAGNESIUM 2.1 mg/dL (1.8-2.4); POTASSIUM 4.7 mmol/L (3.5-5.1); TOTAL BILIRUBIN 0.6 mg/dL (<0.1-1.0); TOTAL PROTEIN 6.8 g/dL (6.4-8.2)
[2019-12-05 05:17] LABS: BE -2.6 mmol/L (-2 to +3); PCO2 40.5 mmHg (35.0-45.0); PO2 89.6 mmHg (75.0-100.0); pH 7.364 (7.340-7.450)
[2019-12-06] VITALS (22 sets, daily range): BP systolic 87–112; BP diastolic 48–65
[2019-12-06 08:32] LABS: ABSOLUTE LYMPHOCYTES 0.4 thou/uL (0.8-5.3); ABSOLUTE MONOCYTES 0.5 thou/uL (0.0-1.2); ABSOLUTE NEUTROPHILS 8.5 thou/uL (1.6-8.1); BASOPHILS 0.2 %; EOSINOPHILS 0.1 %; HEMATOCRIT 34.2 % (37.0-47.0); HEMOGLOBIN 10.7 gm/dL (12.0-15.0); LYMPHOCYTES 4.1 %; MCH 30.1 pg (26.0-34.0); MCHC 31.4 g/dL (28.0-37.0); MCV 95.8 fL (80.0-100.0); MONOCYTES 5.5 %; MPV 8.2 fl. (7.2-11.1); NUCLEATED RBCS 0 /100WBC; PLATELET COUNT* 177 thou/uL (150-400); POLYS 90.1 %; RBC 3.57 mil/uL (4.20-5.00); RDW-CV 17.6 % (10.5-14.5); WBC 9.4 thou/uL (4.0-11.0)
[2019-12-06 08:35] LABS: CALCIUM 8.3 mg/dL (8.5-10.1); POTASSIUM 4.7 mmol/L (3.5-5.1)
[2019-12-06 09:02] LABS: BE -0.1 mmol/L (-2 to +3); PCO2 39.6 mmHg (35.0-45.0); pH 7.409 (7.340-7.450)
[2019-12-06 09:04] LABS: PO2 138.7 mmHg (75.0-100.0)
[2019-12-07] VITALS (55 sets, daily range): BP systolic 70–178; BP diastolic 40–92
[2019-12-07 04:11] LABS: HEMATOCRIT 27.2 % (37.0-47.0); MCH 30.7 pg (26.0-34.0); MCHC 31.8 g/dL (28.0-37.0); MCV 96.3 fL (80.0-100.0); MPV 8.6 fl. (7.2-11.1); RBC 2.82 mil/uL (4.20-5.00); RDW-CV 17.9 % (10.5-14.5); WBC 8.2 thou/uL (4.0-11.0)
[2019-12-07 04:21] LABS: HEMOGLOBIN 8.7 gm/dL (12.0-15.0)
[2019-12-07 04:44] LABS: ALBUMIN 1.7 g/dL (3.4-5.0); MAGNESIUM 1.9 mg/dL (1.8-2.4); POTASSIUM 4.4 mmol/L (3.5-5.1); TOTAL BILIRUBIN 0.5 mg/dL (<0.1-1.0); TOTAL PROTEIN 5.2 g/dL (6.4-8.2)
[2019-12-07 04:46] LABS: CREATININE 5.2 mg/dL (0.6-1.3)
[2019-12-07 05:14] LABS: BE -0.4 mmol/L (-2 to +3); PCO2 43.9 mmHg (35.0-45.0); PO2 100.2 mmHg (75.0-100.0); pH 7.373 (7.340-7.450)
[2019-12-07 12:55] LABS: HEMATOCRIT 34.1 % (37.0-47.0); HEMOGLOBIN 10.9 gm/dL (12.0-15.0)
[2019-12-08] VITALS (28 sets, daily range): BP systolic 80–140; BP diastolic 45–85
[2019-12-08 08:54] LABS: ABSOLUTE EOSINOPHILS 0.1 thou/uL (0.0-0.7); ABSOLUTE LYMPHOCYTES 0.6 thou/uL (0.8-5.3); ABSOLUTE MONOCYTES 0.9 thou/uL (0.0-1.2); ABSOLUTE NEUTROPHILS 7.9 thou/uL (1.6-8.1); BASOPHILS 0.3 %; EOSINOPHILS 1.5 %; HEMATOCRIT 32.5 % (37.0-47.0); HEMOGLOBIN 10.5 gm/dL (12.0-15.0); LYMPHOCYTES 6.2 %; MCH 30.2 pg (26.0-34.0); MCHC 32.2 g/dL (28.0-37.0); MCV 93.8 fL (80.0-100.0); MONOCYTES 9.3 %; MPV 8.9 fl. (7.2-11.1); NUCLEATED RBCS 0 /100WBC; PLATELET COUNT* 167 thou/uL (150-400); POLYS 82.7 %; RBC 3.46 mil/uL (4.20-5.00); RDW-CV 17.9 % (10.5-14.5); WBC 9.6 thou/uL (4.0-11.0)
[2019-12-08 09:05] LABS: CALCIUM 8.4 mg/dL (8.5-10.1); CREATININE 4.5 mg/dL (0.6-1.3); POTASSIUM 4.4 mmol/L (3.5-5.1)
[2019-12-09] VITALS (35 sets, daily range): BP systolic 94–144; BP diastolic 48–86
[2019-12-09 05:05] LABS: HEMATOCRIT 31.8 % (37.0-47.0); HEMOGLOBIN 10.1 gm/dL (12.0-15.0); MCH 30.2 pg (26.0-34.0); MCHC 31.9 g/dL (28.0-37.0); MCV 94.5 fL (80.0-100.0); RBC 3.37 mil/uL (4.20-5.00); RDW-CV 17.6 % (10.5-14.5)
[2019-12-09 05:27] LABS: ALBUMIN 2.4 g/dL (3.4-5.0); CALCIUM 8.3 mg/dL (8.5-10.1); CREATININE 5.3 mg/dL (0.6-1.3); MAGNESIUM 2.1 mg/dL (1.8-2.4); POTASSIUM 4.7 mmol/L (3.5-5.1); TOTAL BILIRUBIN 0.6 mg/dL (<0.1-1.0); TOTAL PROTEIN 5.9 g/dL (6.4-8.2)
[2019-12-09 10:34] LABS: BE 1.2 mmol/L (-2 to +3); PCO2 45.2 mmHg (35.0-45.0); pH 7.386 (7.340-7.450)
[2019-12-09 10:37] LABS: PO2 127.5 mmHg (75.0-100.0)
[2019-12-10] VITALS (55 sets, daily range): BP systolic 100–174; BP diastolic 53–142
[2019-12-10 05:29] LABS: BE -2.4 mmol/L (-2 to +3); PCO2 36.4 mmHg (35.0-45.0); PO2 93.8 mmHg (75.0-100.0); pH 7.399 (7.340-7.450)
[2019-12-10 05:29] LABS: HEMATOCRIT 30.5 % (37.0-47.0); HEMOGLOBIN 9.8 gm/dL (12.0-15.0); MCH 30.2 pg (26.0-34.0); MCHC 32.2 g/dL (28.0-37.0); MCV 93.7 fL (80.0-100.0); MPV 9.4 fl. (7.2-11.1); NUCLEATED RBCS 0 /100WBC; PLATELET COUNT* 172 thou/uL (150-400); RBC 3.25 mil/uL (4.20-5.00); RDW-CV 17.9 % (10.5-14.5); WBC 11.6 thou/uL (4.0-11.0)
[2019-12-10 05:44] LABS: INR 1.1; PROTIME 11.7 Seconds (9.20-11.50)
[2019-12-10 05:47] LABS: ALBUMIN 2.6 g/dL (3.4-5.0); CREATININE 6.1 mg/dL (0.6-1.3); POTASSIUM 5.2 mmol/L (3.5-5.1); TOTAL BILIRUBIN 0.6 mg/dL (<0.1-1.0); TOTAL PROTEIN 6.1 g/dL (6.4-8.2)
[2019-12-10 06:29] LABS: ABSOLUTE LYMPHOCYTES 0.5 thou/uL (0.8-5.3); ABSOLUTE MONOCYTES 0.3 thou/uL (0.0-1.2); ABSOLUTE NEUTROPHILS 10.8 thou/uL (1.6-8.1); ANISOCYTOSIS 1+; MYELOCYTES 1 %; PLATELET ESTIMATE ADEQUATE; POIKILOCYTOSIS 1+
[2019-12-11] VITALS (60 sets, daily range): BP systolic 83–132; BP diastolic 48–82
[2019-12-11 07:53] LABS: ABSOLUTE EOSINOPHILS 0.1 thou/uL (0.0-0.7); ABSOLUTE LYMPHOCYTES 0.6 thou/uL (0.8-5.3); ABSOLUTE MONOCYTES 1.2 thou/uL (0.0-1.2); ABSOLUTE NEUTROPHILS 8.7 thou/uL (1.6-8.1); BASOPHILS 0.2 %; EOSINOPHILS 1.2 %; HEMATOCRIT 30.3 % (37.0-47.0); HEMOGLOBIN 9.8 gm/dL (12.0-15.0); LYMPHOCYTES 5.6 %; MCH 30.2 pg (26.0-34.0); MCHC 32.4 g/dL (28.0-37.0); MCV 93.2 fL (80.0-100.0); MONOCYTES 11.4 %; MPV 8.9 fl. (7.2-11.1); NUCLEATED RBCS 0 /100WBC; PLATELET COUNT* 191 thou/uL (150-400); POLYS 81.6 %; RBC 3.25 mil/uL (4.20-5.00); RDW-CV 17.4 % (10.5-14.5); WBC 10.7 thou/uL (4.0-11.0)
[2019-12-11 08:01] LABS: CALCIUM 8.4 mg/dL (8.5-10.1)
[2019-12-11 08:12] LABS: CREATININE 4.8 mg/dL (0.6-1.3)
[2019-12-12] VITALS (33 sets, daily range): BP systolic 90–141; BP diastolic 53–82
[2019-12-12 05:01] LABS: ABSOLUTE EOSINOPHILS 0.1 thou/uL (0.0-0.7); ABSOLUTE LYMPHOCYTES 0.6 thou/uL (0.8-5.3); ABSOLUTE MONOCYTES 1.1 thou/uL (0.0-1.2); ABSOLUTE NEUTROPHILS 7.5 thou/uL (1.6-8.1); BASOPHILS 0.1 %; EOSINOPHILS 1.2 %; HEMATOCRIT 30.6 % (37.0-47.0); HEMOGLOBIN 9.9 gm/dL (12.0-15.0); LYMPHOCYTES 6.2 %; MCH 30.6 pg (26.0-34.0); MCHC 32.4 g/dL (28.0-37.0); MCV 94.4 fL (80.0-100.0); MPV 8.9 fl. (7.2-11.1); NUCLEATED RBCS 0 /100WBC; PLATELET COUNT* 192 thou/uL (150-400); POLYS 80.5 %; RBC 3.24 mil/uL (4.20-5.00); RDW-CV 17.6 % (10.5-14.5); WBC 9.4 thou/uL (4.0-11.0)
[2019-12-12 05:07] LABS: CALCIUM 8.6 mg/dL (8.5-10.1); CREATININE 5.6 mg/dL (0.6-1.3); MAGNESIUM 2.4 mg/dL (1.8-2.4); POTASSIUM 4.2 mmol/L (3.5-5.1)
[2019-12-12 16:02] LABS: BE -0.8 mmol/L (-2 to +3); PCO2 37.3 mmHg (35.0-45.0); PO2 64.3 mmHg (75.0-100.0); pH 7.416 (7.340-7.450)
[2019-12-13] VITALS (24 sets, daily range): BP systolic 116–154; BP diastolic 60–102
[2019-12-13 09:43] LABS: HEMATOCRIT 31.2 % (37.0-47.0); HEMOGLOBIN 9.9 gm/dL (12.0-15.0); MCH 29.9 pg (26.0-34.0); MCHC 31.7 g/dL (28.0-37.0); MCV 94.3 fL (80.0-100.0); MPV 8.8 fl. (7.2-11.1); RBC 3.31 mil/uL (4.20-5.00); RDW-CV 17.9 % (10.5-14.5); WBC 11.4 thou/uL (4.0-11.0)
[2019-12-13 09:50] LABS: CALCIUM 8.5 mg/dL (8.5-10.1); CREATININE 4.7 mg/dL (0.6-1.3); POTASSIUM 3.5 mmol/L (3.5-5.1)
[2019-12-14] VITALS (27 sets, daily range): BP systolic 115–168; BP diastolic 45–86
[2019-12-14 05:48] LABS: HEMATOCRIT 31.3 % (37.0-47.0); MCH 30.1 pg (26.0-34.0); MCV 94.3 fL (80.0-100.0); MPV 8.4 fl. (7.2-11.1); NUCLEATED RBCS 0 /100WBC; PLATELET COUNT* 190 thou/uL (150-400); RBC 3.32 mil/uL (4.20-5.00); RDW-CV 17.7 % (10.5-14.5); WBC 9.2 thou/uL (4.0-11.0)
[2019-12-14 06:09] LABS: ALBUMIN 2.8 g/dL (3.4-5.0); CALCIUM 8.7 mg/dL (8.5-10.1); CREATININE 5.8 mg/dL (0.6-1.3); MAGNESIUM 2.3 mg/dL (1.8-2.4); POTASSIUM 3.7 mmol/L (3.5-5.1); TOTAL BILIRUBIN 0.7 mg/dL (<0.1-1.0); TOTAL PROTEIN 6.3 g/dL (6.4-8.2)
[2019-12-14 07:15] LABS: ABSOLUTE LYMPHOCYTES 0.3 thou/uL (0.8-5.3); ABSOLUTE MONOCYTES 0.7 thou/uL (0.0-1.2); ABSOLUTE NEUTROPHILS 8.2 thou/uL (1.6-8.1); ANISOCYTOSIS 1+; METAMYELOCYTES 1 %; PLATELET ESTIMATE ADEQUATE
[2019-12-14 07:16] LABS: HYPOCHROMASIA 1+
[2019-12-14 10:50] LABS: PCO2 40.9 mmHg (35.0-45.0); PO2 90.7 mmHg (75.0-100.0); pH 7.354 (7.340-7.450)
[2019-12-15] VITALS (33 sets, daily range): BP systolic 104–159; BP diastolic 44–92
[2019-12-15 04:48] LABS: ABSOLUTE LYMPHOCYTES 0.3 thou/uL (0.8-5.3); ABSOLUTE MONOCYTES 0.5 thou/uL (0.0-1.2); ABSOLUTE NEUTROPHILS 8.6 thou/uL (1.6-8.1); BASOPHILS 0.1 %; HEMATOCRIT 32.8 % (37.0-47.0); HEMOGLOBIN 10.5 gm/dL (12.0-15.0); LYMPHOCYTES 3.2 %; MCH 30.4 pg (26.0-34.0); MONOCYTES 5.7 %; MPV 8.6 fl. (7.2-11.1); NUCLEATED RBCS 0 /100WBC; PLATELET COUNT* 216 thou/uL (150-400); RBC 3.46 mil/uL (4.20-5.00); RDW-CV 18.2 % (10.5-14.5); WBC 9.5 thou/uL (4.0-11.0)
[2019-12-15 05:02] LABS: CALCIUM 9.4 mg/dL (8.5-10.1); POTASSIUM 3.6 mmol/L (3.5-5.1)
[2019-12-15 05:13] LABS: CREATININE 4.2 mg/dL (0.6-1.3)
[2019-12-15 05:19] LABS: PREALBUMIN 31.3 mg/dL (18.0-35.7)
[2019-12-15 09:36] LABS: BE -0.1 mmol/L (-2 to +3); PCO2 36.4 mmHg (35.0-45.0); pH 7.435 (7.340-7.450)
[2019-12-16] VITALS (18 sets, daily range): BP systolic 129–166; BP diastolic 68–115
[2019-12-17 04:00] VITALS: BP 144/83
[2019-12-17 08:00] VITALS: BP 149/85
[2019-12-17 09:26] LABS: HEMATOCRIT 33.4 % (37.0-47.0); HEMOGLOBIN 10.5 gm/dL (12.0-15.0); MCH 29.8 pg (26.0-34.0); MCHC 31.4 g/dL (28.0-37.0); MCV 94.9 fL (80.0-100.0); MPV 8.6 fl. (7.2-11.1); NUCLEATED RBCS 0 /100WBC; PLATELET COUNT* 188 thou/uL (150-400); RBC 3.52 mil/uL (4.20-5.00); RDW-CV 18.2 % (10.5-14.5); WBC 12.2 thou/uL (4.0-11.0)
[2019-12-17 09:34] LABS: ALBUMIN 3.2 g/dL (3.4-5.0); CALCIUM 9.1 mg/dL (8.5-10.1); POTASSIUM 4.3 mmol/L (3.5-5.1); TOTAL BILIRUBIN 0.6 mg/dL (<0.1-1.0); TOTAL PROTEIN 7.1 g/dL (6.4-8.2)
[2019-12-17 10:13] LABS: ABSOLUTE LYMPHOCYTES 0.6 thou/uL (0.8-5.3); ABSOLUTE MONOCYTES 0.2 thou/uL (0.0-1.2); ABSOLUTE NEUTROPHILS 11.3 thou/uL (1.6-8.1); HYPOCHROMASIA 1+; PLATELET ESTIMATE DECREASED
[2019-12-17 10:14] LABS: ANISOCYTOSIS 1+; MICROCYTES Occasional
[2019-12-17 12:00] VITALS: BP 138/77
[2019-12-17 16:00] VITALS: BP 126/79
[2019-12-17 20:59] VITALS: BP 136/76
[2019-12-17 23:54] VITALS: BP 147/78
[2019-12-18 05:11] VITALS: BP 125/67
[2019-12-18 08:00] VITALS: BP 143/72
[2019-12-18 12:10] VITALS: BP 116/66
[2019-12-18 17:01] VITALS: BP 140/88
[2019-12-18 17:49] VITALS: BP 140/88
[2019-12-18 20:19] VITALS: BP 144/77
[2019-12-19] VITALS (7 sets, daily range): BP systolic 122–158; BP diastolic 35–98
[2019-12-19 06:36] LABS: HEMATOCRIT 32.4 % (37.0-47.0); HEMOGLOBIN 10.2 gm/dL (12.0-15.0); MCH 29.9 pg (26.0-34.0); MCHC 31.5 g/dL (28.0-37.0); MPV 7.9 fl. (7.2-11.1); RBC 3.41 mil/uL (4.20-5.00); RDW-CV 18.4 % (10.5-14.5); WBC 12.5 thou/uL (4.0-11.0)
[2019-12-19 06:45] LABS: CALCIUM 9.1 mg/dL (8.5-10.1); CREATININE 6.6 mg/dL (0.6-1.3); MAGNESIUM 2.4 mg/dL (1.8-2.4); POTASSIUM 4.5 mmol/L (3.5-5.1)
[2019-12-20 06:02] VITALS: BP 137/66
[2019-12-20 08:00] VITALS: BP 150/74
[2019-12-20 12:00] VITALS: BP 141/78
[2019-12-20 17:32] VITALS: BP 137/76
--- NOTE | 2019-12-20 17:53 | EEG ---
[address] [address] EEG STUDY REPORT Name: PABLITO CHAVARRIA Room: [address] IN M.R.#: [id number] Admission: 11/30/19 Attend Phys: Gabriella Harris MD Discharge: Date of : 48 Report #: [id number] THIS REPORT FOR: //name// CC: [facility] physician/PCP Gabriella Harris DATE OF SERVICE: 12/06/2019 This patient is being evaluated for altered mental status. EEG was done by placing the electrode by standard 10-20 system of electrode placement. Both referential and sequential montages were used for recording. Background activity in this patient's EEG is about 4-5 Hz and 10 microvolt is a low voltage activity. Photic stimulation is unremarkable. No active epileptiform activity was noticed. IMPRESSION: This is a significantly abnormal EEG because it is disorganized and poorly formed. That is a nonspecific abnormality, which can occur with encephalopathy, effect of psychotropic medication, dementia, etc. Clinical correlation is recommended. <ELECTRONICALLY SIGNED> By: Enrike Farah MD 12/20/19 1753 1804 1840Enrike Farah MD /nt
[2019-12-20 20:00] VITALS: BP 139/82
[2019-12-21 00:40] VITALS: BP 133/85
[2019-12-21 04:10] VITALS: BP 135/75
[2019-12-21 05:16] LABS: ALBUMIN 2.9 g/dL (3.4-5.0); CALCIUM 8.8 mg/dL (8.5-10.1); CREATININE 5.9 mg/dL (0.6-1.3); POTASSIUM 4.2 mmol/L (3.5-5.1)
[2019-12-21 05:34] LABS: HEMATOCRIT 31.6 % (37.0-47.0); HEMOGLOBIN 10.2 gm/dL (12.0-15.0)
[2019-12-21 08:00] VITALS: BP 151/85
[2019-12-21] MEDS ORDERED: MECLIZINE HCL25 MG PO (10:50)
[2019-12-21] MEDS ORDERED: MIDODRINE HCL 55 M1 PO (10:50)
[2019-12-21] MEDS ORDERED: TRANSDERM-SCOP1 EACH TRANSDERM (10:50)
[2019-12-21] MEDS ORDERED: IPRAT-ALBUT 0.5-3 ML INH (10:50)
[2019-12-21] MEDS ORDERED: PULMICORT0.5 MG/2 M INH (10:50)
[2019-12-21] MEDS ORDERED: OMEPRAZOLE40 MG PO (10:50)
[2019-12-21] MEDS ORDERED: PREDNISONE 10 M10 MG PO (10:50)
[2019-12-21 12:00] VITALS: BP 123/71
[2019-12-21 20:00] VITALS: BP 111/76
[2019-12-22] VITALS: BP 139/67
[2019-12-22 04:00] VITALS: BP 138/73
[2019-12-22 08:00] VITALS: BP 135/74
[2019-12-22 11:27] VITALS: BP 134/87
[2019-12-22 20:00] VITALS: BP 127/75
[2019-12-23] VITALS: BP 135/72
[2019-12-23 04:32] VITALS: BP 138/111; BP 138/71
[2019-12-23 08:00] VITALS: BP 115/56
[2019-12-23 12:59] VITALS: BP 126/63
[2019-12-23 16:50] VITALS: BP 124/68
[2019-12-23 20:00] VITALS: BP 115/54
[2019-12-24] VITALS: BP 126/68
[2019-12-24 03:08] LABS: HEMATOCRIT 33.5 % (37.0-47.0); HEMOGLOBIN 10.7 gm/dL (12.0-15.0); MCH 30.9 pg (26.0-34.0); MCHC 31.8 g/dL (28.0-37.0); MCV 96.9 fL (80.0-100.0); MPV 8.9 fl. (7.2-11.1); RBC 3.45 mil/uL (4.20-5.00); RDW-CV 18.3 % (10.5-14.5)
[2019-12-24 03:17] LABS: CALCIUM 8.7 mg/dL (8.5-10.1); MAGNESIUM 2.2 mg/dL (1.8-2.4)
[2019-12-24 04:00] VITALS: BP 109/45
[2019-12-24 08:00] VITALS: BP 115/48
[2019-12-24] MEDS ORDERED: LANOXIN125 MCG PO (10:13)
[2019-12-24] MEDS ORDERED: PREDNISONE 10 M10 MG PO (10:13)
[2019-12-24] MEDS ORDERED: ELIQUIS5 MG PO (10:13)
[2019-12-24] MEDS ORDERED: METOPROLOL TART25 MG PO (10:13)
[2019-12-24] MEDS ORDERED: MIDODRINE HCL 55 M1 PO (10:13)
[2019-12-24 14:55] VITALS: BP 100/55
--- NOTE | 2019-12-24 15:13 | 2DMMODE ---
[place] [address] 2 D/M-MODE ECHOCARDIOGRAM Name: PABLITO CHAVARRIA Room: [facility] ADM IN Kaylee#: [id number] Admission: 11/30/19 Attend Phys: Gabriella Harris, Discharge: Date of : 48 Date of Service: 12/24/19 1513 Report #: [id number] THIS REPORT FOR: cc: FAM - No family physician/PCP FAM - No family physician/PCP Arthur Gipson MD [facility] ~ APPROVED REPORT Study performed: 12/24/2019 10:34:04 EXAM: Comprehensive 2D, Doppler, and color-flow Echocardiogram Patient Location: In-Patient Room #: 227 Status: routine BSA: 2.37 HR: 46 bpm BP: 115/48 mmHg Rhythm: NSR Other Information Study Quality: Good Indications Arrhythmia atrial flutter 2D Dimensions IVSd: 10.98 (7-11mm) LVOT Diam: 21.74 (18-24mm) LVDd: 42.46 mm PWd: 11.10 (7-11mm) Ascending Ao: 35.06 (22-36mm) LVDs: 23.00 (25-40mm) Aortic Root: 34.06 mm Volumes Left Atrial Volume (Systole) LA ESV Index: 32.40 mL/m2 Aortic Valve AoV Peak Jerson.: 2.01 m/s AO Peak Gr.: 16.17 mmHg LVOT Max P.43 mmHg AO Mean Gr.: 8.70 mmHg LVOT Mean P.22 mmHg LVOT Max V: 1.27 m/s AO V2 VTI: 37.66 cm LVOT Mean V: 0.83 m/s KORY (VTI): 2.38 cm2 LVOT V1 VTI: 24.13 [place] [address] 2 D/M-MODE ECHOCARDIOGRAM Name: PABLITO CHAVARRIA Room: [address] IN [facility].#: [id number] Admission: 11/30/19 Attend Phys: Gabriella Harris, Discharge: Date of : 48 Date of Service: 12/24/19 1513 Report #: [id number] TDI Lateral E' Jerson.: 0.13 m/s Pulmonary Valve PV Peak Jerson.: 1.00 m/s PV Peak Gr.: 3.99 mmHg Tricuspid Valve RAP Estimate: 5.00 mmHg TR Peak Gr.: 59.83 mmHg RVSP: 64.00 mmHg PA Pressure: 64.00 mmHg Left Ventricle The left ventricle is normal size. There is normal LV segmental wall motion. There is normal left ventricular wall thickness. Left ventricular systolic function is normal. The left ventricular ejection fraction is within the normal range. LVEF is 65-70%. This study is not technically sufficient to allow evaluation of the LV diastolic function due to atrial fibrillation. Right Ventricle The right ventricle is normal size. The right ventricular systolic function is normal. Atria Left atrium is mildly dilated. Right atrium is dilated. Aortic Valve Aortic valve is calcified. No aortic regurgitation is present. Mild aortic stenosis. Mitral Valve There is mitral annular calcification. Trace mitral regurgitation. No evidence of mitral valve stenosis. Tricuspid Valve The tricuspid valve is normal in structure. Moderate tricuspid regurgitation. estimated pa pressure 70 mm Hg Pulmonic Valve The pulmonary valve is normal in structure. Mild pulmonic regurgitation. Great Vessels The aortic root is normal in size. IVC is normal in size and collapses >50% [place] [address] 2 D/M-MODE ECHOCARDIOGRAM Name: PABLITO CHAVARRIA Room: [address] IN .R.#: [id number] Admission: 11/30/19 Attend Phys: Gabriella Harris, Discharge: Date of : 48 Date of Service: 12/24/19 1513 Report #: [id number] Pericardium There is no pericardial effusion. <Conclusion> Mild aortic stenosis. LVEF is 65-70%. Moderate tricuspid regurgitation. estimated pa pressure 70 mm Hg Left atrium is mildly dilated. <ELECTRONICALLY SIGNED> By: Arthur Gipson MD, [facility] 12/24/19 1513 12 12 Arthur Gipson MD, [facility] /INF
[2019-12-24 19:40] VITALS: BP 130/73
[2019-12-24 23:33] VITALS: BP 121/74
[2019-12-25 04:00] VITALS: BP 125/69
[2019-12-25 08:00] VITALS: BP 102/44
[2019-12-25 12:09] VITALS: BP 131/64
[2019-12-25 16:52] VITALS: BP 128/60
[2019-12-25 19:45] VITALS: BP 127/58
[2019-12-26] VITALS: BP 117/60
[2019-12-26 04:00] VITALS: BP 115/55
[2019-12-26 05:53] LABS: ALBUMIN 2.9 g/dL (3.4-5.0); CALCIUM 8.8 mg/dL (8.5-10.1); CREATININE 5.4 mg/dL (0.6-1.3); PHOSPHORUS* 4.3 mg/dL (2.5-4.9); POTASSIUM 4.1 mmol/L (3.5-5.1)
[2019-12-26 07:40] VITALS: BP 133/51
--- NOTE | 2019-12-26 08:44 | CON ---
[address] [address] CONSULTATION Name: AURAPABLITO Mele Room: [place] [address] ADM IN M.R.#: [id number] Admission: 11/30/19 Attend Phys: Gabriella Harris MD Discharge: Date of : 48 Report #: [id number] THIS REPORT FOR: //name// cc: [facility] Tracey family physician/PCP [facility] - Kyung family physician/PCP ~ THIS REPORT FOR: //name// CC: [facility] physician/PCP Gabriella Garcia MD DATE OF SERVICE: 12/23/2019 INDICATION: Rapid ventricular response to atrial fibrillation. HISTORY OF PRESENT ILLNESS: The patient is a 69-year-old white female, who is known to our service. She has a history of chronic atrial fibrillation. She is on medication for rate control as well as chronically anticoagulated with 2.5 mg of Eliquis twice daily. There is no history of CVA. She is without other significant cardiac history. Echocardiogram last year showed normal LV systolic function, mild mitral insufficiency, moderate tricuspid insufficiency, and no other significant abnormalities. There is no history of coronary artery disease or myocardial infarction. She has a long and complex past medical history most notably consisting of COPD, chronic anasarca, and lymphedema, especially of the lower extremities, end-stage renal disease; on dialysis. The patient has been hospitalized for a prolonged period of time secondary to respiratory failure. She was eventually able to be weaned from the ventilator and is now on the medical telemetry floor, recovering. She continues on dialysis. Over the last day or so, she has had a rapid ventricular response rate to her atrial fibrillation. Intermittently, her beta-shahram has been held due to low blood pressure. With boluses of IV digoxin, her heart rate is now controlled. She denies any chest pain, tightness, or pressure. She is not having shortness of breath. She does not have palpitations with her rapid ventricular response rate to her atrial fibrillation. Prior to hospitalization, it is unknown what she was using for rate control. She was on anticoagulant. Presently, she is on metoprolol 12.5 mg b.i.d. and digoxin 0.25 mg daily. With boluses last evening, her heart rate is now well controlled. PAST MEDICAL HISTORY: 1. COPD. 2. End-stage renal disease, [place] [address] CONSULTATION Name: PABLITO CHAVARRIA Room: [address] IN [facility]#: [id number] Admission: 11/30/19 Attend Phys: Gabriella Harris MD Discharge: Date of : 48 Report #: [id number] 3. Chronic atrial fibrillation. 4. Lymphedema of the lower extremities with intermittent cellulitis. 5. Anasarca. 6. Morbid obesity. 7. Type 2 diabetes mellitus. 8. Hyperlipidemia. 9. Hypertension, by history. 10. Right breast cancer with lumpectomy and radiation treatments. 11. x 2. 12. Tonsillectomy and adenoidectomy in 1992. 13. Fibromyalgia. 14. Cholecystectomy in 1975. 15. Abdominal hernia repair x 3. 16. Bilateral knee arthritis. 17. Bilateral mastectomy in 2013. FAMILY HISTORY: Noncontributory. SOCIAL HISTORY: The patient is a lifelong nonsmoker. She does not drink alcohol. PHYSICAL EXAMINATION: VITAL SIGNS: Blood pressure 115/56, pulse is in the 90s and irregular. GENERAL: This is an obese white female, who is pleasant and in no distress. HEENT: Head is normocephalic, atraumatic. Extraocular muscles intact. Mucous membranes are moist. NECK: Shows no jugular venous distention. There are no carotid bruits. CHEST: Reveals diminished breath sounds that are clear without wheezes or rales. CARDIAC: Reveals an irregularly irregular rhythm with a soft early systolic murmur at the left upper sternal border. I do not appreciate a gallop. ABDOMEN: Reveals normal bowel sounds. The abdomen is soft and nontender. EXTREMITIES: Shows chronic lower extremity lymphedema with skin changes consistent with this. LABORATORY DATA: A 12-lead EKG shows atrial fibrillation with controlled ventricular response rate. No acute ST or T-wave abnormalities are noted. Labs are reviewed. Dig level 2.0. Chest x-ray shows some cardiomegaly, patchy left basilar atelectasis. IMPRESSION AND RECOMMENDATIONS: 1. Atrial fibrillation with rapid ventricular response, presently controlled after IV boluses of digoxin. I will continue daily digoxin as outlined above as well as boluses if needed, although this appears stable. Continue beta-shahram as scheduled. She is chronically anticoagulated [place] [address] CONSULTATION Name: PABLITO CHAVARRIA Room: [address] IN ..#: [id number] Admission: 11/30/19 Attend Phys: Gabriella Harris MD Discharge: Date of : 48 Report #: [id number] problems. 2. History of hypertension. Blood pressure normal to low presently. Somewhat complicated by dialysis. She does have intermittent midodrine as needed. We will follow. 3. Dyslipidemia. Continue atorvastatin at current dose. 4. Respiratory failure due to chronic obstructive pulmonary disease, appears to be improving and stable. 5. End-stage renal disease, on dialysis per Nephrology. 6. Cardiomegaly on chest x-ray. We will obtain echocardiogram. <ELECTRONICALLY SIGNED> By: Curry Peralta MD, FACC 12/26/19 [id number] Peralta MD, FACC /nt
[2019-12-26] MEDS ORDERED: PREDNISONE 10 M10 MG PO (09:25)
[2019-12-26 14:14] VITALS: BP 103/56
[2019-12-26 14:26] VITALS: BP 103/56
== END 2019-12-26 15:10 | DRG 870 ==
LOC: M.ERS 13:11 → M.TBA-ER 14:46 → M.ICU 14:46 → M.2W 12-17 00:06
PROVIDERS: Family Medicine; Internal Medicine; Internal Medicine Critical Care Medicine; Internal Medicine Nephrology; Pediatrics; ADMIT Internal Medicine; ATTEND Internal Medicine
DX: A41.52 Sepsis due to Pseudomonas (principal); J96.01 Acute respiratory failure with hypoxia; N18.6 End stage renal disease; I50.23 Acute on chronic systolic (congestive) heart failure; J15.1 Pneumonia due to Pseudomonas; J15.8 Pneumonia due to other specified bacteria; E43 Unspecified severe protein-calorie malnutrition; J96.02 Acute respiratory failure with hypercapnia; R65.21 Severe sepsis with septic shock; J15.0 Pneumonia due to Klebsiella pneumoniae; J44.1 Chronic obstructive pulmonary disease with (acute) exacerbation; J44.0 Chronic obstructive pulmonary disease with (acute) lower respiratory infection; I13.2 Hypertensive heart and chronic kidney disease with heart failure and with stage 5 chronic kidney disease, or end stage renal disease; E87.1 Hypo-osmolality and hyponatremia; N17.9 Acute kidney failure, unspecified; G93.1 Anoxic brain damage, not elsewhere classified; D68.59 Other primary thrombophilia; Z99.11 Dependence on respirator [ventilator] status; A41.59 Other Gram-negative sepsis; Z99.2 Dependence on renal dialysis; E78.5 Hyperlipidemia, unspecified; M79.7 Fibromyalgia; Z90.13 Acquired absence of bilateral breasts and nipples; B02.9 Zoster without complications; I87.8 Other specified disorders of veins; I89.0 Lymphedema, not elsewhere classified; I48.91 Unspecified atrial fibrillation; R62.7 Adult failure to thrive; E66.01 Morbid (severe) obesity due to excess calories; D64.9 Anemia, unspecified; G47.33 Obstructive sleep apnea (adult) (pediatric); E11.59 Type 2 diabetes mellitus with other circulatory complications; E11.22 Type 2 diabetes mellitus with diabetic chronic kidney disease; E11.40 Type 2 diabetes mellitus with diabetic neuropathy, unspecified; Y95 Nosocomial condition; E87.70 Fluid overload, unspecified; G72.9 Myopathy, unspecified; I95.9 Hypotension, unspecified; I27.20 Pulmonary hypertension, unspecified; I07.1 Rheumatic tricuspid insufficiency; M48.061 Spinal stenosis, lumbar region without neurogenic claudication; Z20.828 Contact with and (suspected) exposure to other viral communicable diseases; Z68.38 Body mass index [BMI] 38.0-38.9, adult; Z79.899 Other long term (current) drug therapy; Z79.01 Long term (current) use of anticoagulants; Z79.2 Long term (current) use of antibiotics; Z79.4 Long term (current) use of insulin